=== PATIENT | female | born 1980 | race Caucasian/White ===

== ENCOUNTER → 2018-12-04 | Outpatient (CLI) | payer BC, SELFPAY | PROVIDERS: PCP Internal Medicine Rheumatology; Visit Provider Obstetrics & Gynecology | DX: D64.9 Anemia, unspecified (principal) | CPT/HCPCS: 36415; 83540; 83550; 84466; 85025 ==

== ENCOUNTER 2020-06-25 10:04 | Inpatient (IN) | payer BC, SELFPAY ==
--- NOTE | ~2020-06-25 | CT_ITS ---
EXAMINATION: CT abdomen pelvis wo con DATE: 06/25/2020 13:18 INDICATION: Pancreatitis TECHNIQUE: Computed tomography (CT) of the abdomen and pelvis was performed without intravenous contr ast. Automated exposure control and iterative reconstruction technique were employed. The dose-length product was 233.14 mGy-cm. COMPARISON: None FINDINGS: Lung bases are clear. Heart size is normal. No pericardial or pleural effusion. Liver, gallbladder, s pleen, bilateral adrenal glands and kidneys are normal. There is diffuse peripancreatic inflammatory stranding along with a small nonloculated peripancreatic fluid collection tracking along the anterior left pararenal space. Additional small amount of fluid tracking caudally along the along within the greater omentum. Small amount of ascites in the cul-de-sac. No bowel obstruction. Normal appendix. Bl adder is normal. Tampon within the vaginal vault. Anteverted uterus and bilateral adnexa are unremark able. No pathologically enlarged abdominal or pelvic lymphadenopathy. Bones are unremarkable. IMPRESSION: 1. Peripancreatic inflammatory stranding consistent with acute interstitial pancreatitis with small a cute peripancreatic fluid collections extending to the left anterior pararenal space and tracking naa ng or within the greater omentum. Reviewed, dictated and finalized at location A. IMPRESSION: 1. Peripancreatic inflammatory stranding consistent with acute interstitial whitaker creatitis with small acute peripancreatic fluid collections extending to the le ft anterior pararenal space and tracking along or within the greater omentum.
--- NOTE | ~2020-06-25 | US_ITS ---
EXAMINATION: US right upper quadrant DATE: 06/25/2020 12:44 INDICATION: Right upper quadrant abdominal pain. Pancreatitis. TECHNIQUE: Multiple grayscale and Doppler ultrasound images of the abdomen were obtained. COMPARISON: None FINDINGS: The visualized portions of the head, body, and tail of the pancreas are normal. The liver i s normal without focal lesion. No liver surface nodularity. There is normal flow in main portal vein. The gallbladder is normal in size. No gallstones or gallbladder wall thickening. There was no sonogr aphic Ceron sign. The common duct is normal and measures 5 mm. IMPRESSION: 1. Normal right upper quadrant ultrasound. Reviewed, dictated and finalized at location B.
--- NOTE | 2020-06-25 10:06 | ECG_ITS ---
Measurements Intervals [place] Rate: 94 P: 76 NE: 140 QRS: 66 QRSD: 93 T: 29 QT: 345 QTc: 433 Interpretive Statements SINUS RHYTHM INCOMPLETE RIGHT BUNDLE BRANCH BLOCK NONSPECIFIC T-WAVE ABNORMALITY- ANT/INF LEADS BORDERLINE ECG Electronically Signed On 06-25-2020 10:30:34 CDT by Brett Dozier D.O.
[2020-06-25 10:07] VITALS: BP 110/68; PULSE 101; RESP 20; TEMP 36.4; O2SAT 100
[2020-06-25 10:30] LABS: Basophils Absolute Auto 0.1 K/mm3 (0.0-0.1); Basophils Percent Auto 0.2 % (0.2-1.2); Hematocrit 39.2 % (37.0-47.0); Hemoglobin 12.5 g/dL (12.0-15.0); Immature Granulocyte Absolute 0.14 K/mm3 (0.00-0.031); Immature Granulocyte Percent A 0.7 % (0-0.5); Lymphocytes Absolute Auto 1.22 K/mm3 (0.9-3.2); Lymphocytes Percent Auto 6.1 % (18.3-44.2); Mean Corpuscular HGB Conc 31.9 g/dl (32-36); Mean Corpuscular Hemoglobin 30.3 pg (26-34); Mean Corpuscular Volume 94.9 fl (80-100); Mean Platelet Volume 9.7 fl (7.4-10.4); Monocytes Absolute Auto 0.8 K/mm3 (0.1-0.6); Monocytes Percent Auto 3.9 % (2.6-8.5); Neutrophils Absolute Auto 17.9 K/mm3 (1.3-6.7); Neutrophils Percent Auto 89.1 % (45.5-73.1); Platelet Count Result 446 k/mm3 (150-375); Red Blood Count 4.13 M/mm3 (4.2-5.4); White Blood Count 20.1 K/mm3 (4.5-10.0)
[2020-06-25 10:41] LABS: Alanine Aminotransferase 9 U/L (4-35); Albumin Level 4.2 g/dL (3.5-5.1); Alkaline Phosphatase 65 U/L (38-126); Anion Gap 12 mmol/L (8-16); Aspartate Amino Transferase 20 U/L (14-36); Bilirubin,Total 0.4 mg/dL (0.2-1.3); Blood Urea Nitrogen 9 mg/dL (7-17); Calcium 9.7 mg/dL (8.4-10.2); Carbon Dioxide 23 mmol/L (22-30); Chloride 105 mmol/L (98-107); Estimated CRCL calculation 78 ml/min; Estimated Glomerular Filt Rate > 60; Glucose 119 mg/dL (65-105); Potassium 3.5 mmol/L (3.4-5.0); Sodium 140 mmol/L (137-145)
[2020-06-25 11:13] LABS: Lipase 8986 U/L (23-300)
[2020-06-25 11:33] LABS: Add Urine Microscopic? YES; Appearance Urine Clear (Clear); Bacteria Urine Trace /hpf; Bilirubin Urine Negative (Negative); Blood Urine 2+ (Negative); Color Urine Yellow (Yellow); Glucose Urine UA Negative (Negative); Ketones Urine 2+ mg/dL (Negative); Leukocyte Esterase Ur Negative LEU/UL (Negative); Mucus Urine Rare /lpf; Nitrate Urine Negative (Negative); Protein Urine 1+ mg/dL (Negative); RBC Urine 0-2 /hpf (0-2); Specific Grav Ur 1.014 (1.001-1.035); Squamous Epithelial Cell Urine Rare /hpf (Few); Urobilinogen Urine Negative mg/dL (<2.0); WBC Urine 0-3 /hpf
[2020-06-25] MEDS: ONDANSETRON INJ 4 MG/2 ML VIAL IV PUSH ×3 (12:24→23:59)
[2020-06-25] MEDS: MORPHINE SULFATE (*CRX) 4 MG/ML INJ IV PUSH (12:24)
[2020-06-25] MEDS: SODIUM CHLORIDE 0.9% IV 1,000 ML 999 ML IV CONT (13:10)
[2020-06-25] MEDS: HYDROmorphone HCL INJ (*CRX) 1 MG/ML SYR IV PUSH ×5 (13:10→23:51)
--- NOTE | 2020-06-25 13:29 | ED.ABDPAIN ---
HPI - Abdominal Pain General Chief Complaint: Abdominal Pain Stated Complaint: epigastric and back pain Time Seen by Provider: 06/25/20 12:00 History of Present Illness HPI narrative: Patient is a 39-year-old female who presents ER with sharp epigastric pain. Began this morning. Worse with eating. Pain radiates into her back. Pain causes nausea and vomiting. Has not had similar symptoms before. No history of gallstones or pancreatitis. No alcohol ingestion. No new home medications. No alleviating factors. Related Data Home Medications Medication Instructions Recorded Confirmed alprazolam 2 mg PO Q4H 06/25/20 06/25/20 hydrocodone-acetaminophen [[place]] 1 tablet PO QID PRN 06/25/20 06/25/20 norgestimate-ethinyl estradiol 1 tablet PO DAILY 06/25/20 06/25/20 [Estarylla] Allergies Allergy/AdvReac Type Severity Reaction Status Date / Time Iodinated Contrast Media Allergy Severe Swelling Verified 06/26/20 18:04 of Lip/Tongue/Throat, DYSPNEA levofloxacin Allergy Severe Anaphylactic Verified 06/25/20 15:29 Shock mirtazapine Allergy Severe Unknown Verified 06/25/20 15:29 paroxetine Allergy Severe Unknown Verified 06/25/20 15:29 Sulfa (Sulfonamide Allergy Severe Unknown Verified 06/25/20 15:29 Antibiotics) sulfamethoxazole Allergy Severe Anaphylactic Verified 06/25/20 15:29 Shock trimethoprim Allergy Severe Anaphylactic Verified 06/25/20 15:29 Shock acetaminophen Allergy Intermediate Fainting Verified 06/25/20 15:29 [From Tylenol-Codeine #3] codeine Allergy Intermediate Fainting Verified 06/25/20 15:29 [From Tylenol-Codeine #3] Penicillins Allergy Mild Unknown Verified 06/25/20 15:29 Contrast Media Allergy Severe THROAT Uncoded 06/25/20 10:15 SWELLING, DYSPNEA Review of Systems Review of Systems: All systems reviewed & are unremarkable except as noted in HPI and below Constitutional: Constitutional: Denies chills, Denies fever(s) and Denies weakness ENT: Denies nasal congestion and Denies sore throat Gastrointestinal: Gastrointestinal: Reports abdominal pain, Denies constipation, Denies diarrhea, Reports nausea and Reports vomiting Genitourinary: Genitourinary: Denies nocturia and Denies dysuria [facility] Past Medical History Medical History Fibroids PTSD (post-traumatic stress disorder) Surgical History Surgical History H/O laparoscopy Family History Family History Sibling Renal failure COVID-19 Social History Social History Social History: The patient is and has a master's degree. 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 The patient is lifelong nonsmoker. She denies any alcohol use marijuana use or illicit drugs. Smoking status: Never smoker Second hand tobacco smoke exposure: No Alcohol intake: never Substance use: never Gender identity (if verbalized by the patient): Female Spiritual care concerns: No Exam Narrative: Exam Narrative: GENERAL: Uncomfortable-appearing, well-nourished, and in no acute distress. HEAD: Normocephalic, atraumatic. ENT: Mucous membranes moist. CHEST: Clear to auscultation. No respiratory distress. HEART: Tachycardic and regular. Normal peripheral pulses. ABDOMEN: Soft, epigastric tenderness with guarding, nondistended, normal active bowel sounds. EXTREMITIES: Normal range of motion. No edema. SKIN: Warm, dry, no rash. NEURO: Alert and oriented x3. PSYCH: Normal mood and affect. Course Course Emergency Course: Admit to hospitalist service for pancreatitis and pain control. General surgery consulted. General Vit
[2020-06-25 14:38] VITALS: BP 111/59; PULSE 98; RESP 16; O2SAT 100
--- NOTE | 2020-06-25 14:52 | PM.CNGS ---
Assessment and Plan Assessment and plan (1) Acute pancreatitis: Qualifiers: Acute pancreatitis complication: no infection or necrosis Pancreatitis type: idiopathic Qualified Code(s): K85.00 - Idiopathic acute pancreatitis without necrosis or infection Code(s): K85.90 - Acute pancreatitis without necrosis or infection, unspecified Status: Acute Assessment and Plan: I have reviewed the CT and discussed the findings with the patient. She has evidence of acute pancreatitis but there is no clear identifiable cause. She has never had anything like this before. Since there are no gallstones identified, I do not have any surgical recommendations at this time. Continue supportive care per hospitalist. Will continue to follow for any changes in her condition or abnormal findings on imaging. History of Present Illness Consult details Consult date: 06/26/20 Reason for consult: abdominal pain Requesting physician: Lionel Oro MD Narrative: This is a 39-year-old woman who I am asked to see for pancreatitis. She presented to the emergency department this morning with epigastric abdominal pain that woke her from sleep around 4:30 in the morning. She had eaten pizza for dinner last night, but went to bed feeling otherwise normal. She has never experienced symptoms like this in the past and she is otherwise healthy. She denies any heavy alcohol use. In the emergency department a CT of her abdomen and pelvis was performed which showed evidence of acute interstitial pancreatitis. She also had an abdominal ultrasound which was unremarkable. There were no signs of cholelithiasis or cholecystitis. Review of Systems Review of Systems: All systems reviewed & are unremarkable except as noted in HPI and below Eyes: Eyes: Denies change in vision ENT: Denies hearing loss, Denies neck pain and Denies sore throat Cardiovascular: Cardiovascular: Denies chest pain and Denies dyspnea Respiratory: Respiratory: Denies cough, Denies dyspnea and Denies wheezing Gastrointestinal: Gastrointestinal: Reports as per HPI Genitourinary: Genitourinary: Denies hematuria and Denies dysuria Musculoskeletal: Musculoskeletal: Denies arthralgias, Denies joint swelling and Denies neck pain Allergic/Immunologic: Allergic/Immunologic: Denies wheezing PMFSH Past Medical History Medical History Fibroids PTSD (post-traumatic stress disorder) Surgical History Surgical History H/O laparoscopy Family History Family History Sibling Renal failure COVID-19 Social History Social History Social History: The patient is and has a master's degree. 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 The patient is lifelong nonsmoker. She denies any alcohol use marijuana use or illicit drugs. Smoking status: Never smoker Second hand tobacco smoke exposure: No Alcohol intake: never Substance use: never Gender identity (if verbalized by the patient): Female Spiritual care concerns: No Meds Home Medications and Allergies Home Medications Medication Instructions Recorded Confirmed Type alprazolam 2 mg PO Q4H 06/25/20 06/25/20 History hydrocodone-acetaminophen [[place]] 1 tablet PO QID PRN 06/25/20 06/25/20 History norgestimate-ethinyl estradiol 1 tablet PO DAILY 06/25/20 06/25/20 History [Estarylla] Allergies Allergy/AdvReac Type Severity Reaction Status Date / Time levofloxacin Allergy Severe Anaphylactic Verified 06/25/20 15:29 Shock mirtazapine Allergy Severe Unknown Verified 06/25/20 15:29 paroxetine Allergy Severe Unknown V
[2020-06-25 14:55] VITALS: BP 116/70; PULSE 95; RESP 18; TEMP 36.8; O2SAT 100; BMI 20.7
--- NOTE | 2020-06-25 14:55 | ADMGEN ---
This patient, Eve Chance, was admitted to 2 Medical Room 250-. Patient/family oriented to hospital policies and general routines including ID bracelet, bed and alarms, visiting hours, pain management, procedures, bathroom and other care routines, personal items, smoking policy, room service/diet, and visiting hours. Information on how to activate the Rapid Response Team has been discussed. Patient/Family are encouraged to report perceived risks to care and to ask questions if they do not understand what they are told or what they should do.
[2020-06-25] MEDS: SODIUM CHLORIDE 0.9% IV 1,000 ML 225 ML IV CONT ×2 (15:04→19:45)
[2020-06-25] MEDS: KETOROLAC 15 MG/ML VIAL (*BKC) IV PUSH (18:13)
[2020-06-25] MEDS: LORazepam INJ (*CRX) 2 MG/ML VIAL 1 MG IV PUSH (20:30)
[2020-06-25 20:40] VITALS: BP 130/63; PULSE 108; RESP 18; TEMP 37.1; O2SAT 100
--- NOTE | 2020-06-25 21:10 | PM.IMHP ---
H&P: HPI History of Present Illness Date/Time: 06/25/20 21:10 this is a 39-year-old female patient who just has a history of PTSD and uterine tumors. The patient woke up during the night had sharp epigastric pain. It was worse with eating. She felt a knot in her epigastric area as well. It radiated to her back. She felt nauseated earlier but did vomit. She has not had any similar symptoms in the past and no history of pancreatitis or gallstones. The patient states that she does not drink alcohol. No new medications. Morphine in the emergency room as well as Zofran and IV fluids. Her white count was noted to be 20.1. CT of the pelvis and abdomen was read as peripancreatic inflammatory stranding consistent with acute interstitial pancreatitis with small acute peripancreatic fluid collections extending to the left anterior pararenal space and tracking along or within the great omentum. Surgery had been consulted because there was some concern about the collections. Lipase 8986. However surgery has already seen the patient and noted that there was no surgical intervention required. Date of service of 06/25/2020. Chief Complaint: Abdominal pain Review of Systems Review of Systems: All systems reviewed & are unremarkable except as noted in HPI and below Constitutional: Constitutional: Reports as per HPI and Reports no additional constitutional complaints Eyes: Eyes: Reports as per HPI and Reports no additional eye complaints ENT: Reports system reviewed and no additional complaints, except as documented and Reports Normal hearing present Cardiovascular: Cardiovascular: Reports no additional cardiovascular complaints Respiratory: Respiratory: Reports no additional respiratory complaints and Reports no additional respiratory complaints Gastrointestinal: Gastrointestinal: Reports as per HPI and Reports no additional gastrointestinal complaints Musculoskeletal: Musculoskeletal: Reports no additional musculoskeletal complaints Integumentary/Breasts: Skin/Breast: Reports system reviewed and no additional complaints, except as docu and Reports as per HPI Neurologic: Reports system reviewed and no additional complaints, except as documented, Reports as per HPI and Reports Normal hearing present Psychiatric: Psychiatric: Reports no additional psychiatric complaints and Reports as per HPI Endocrine: Endocrine: Reports no additional endocrine complaints Hematologic/Lymphatic: Hematologic/Lymphatic: Reports no additional hematologic/lymphatic complaints Allergic/Immunologic: Allergic/Immunologic: Reports no additional allergic/immunologic complaints [facility] Past Medical History Medical History (Updated 06/25/20 @ 21:15 by Madhavi Yusuf NP) Fibroids PTSD (post-traumatic stress disorder) Surgical History Surgical History H/O laparoscopy Family History Family History (Updated 06/25/20 @ 21:16 by Madhavi Yusuf NP) Sibling Renal failure COVID-19 Social History Social History (Updated 06/25/20 @ 21:17 by Madhavi uYsuf NP) Social History: The patient is and has a master's degree. 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 The patient is lifelong nonsmoker. She denies any alcohol use marijuana use or illicit drugs. Smoking status: Never smoker Second hand tobacco smoke exposure: No Alcohol intake: never Substance use: never Gender identity (if verbalized by the patient): Female Spiritual care concerns: No Meds Home Medications and Allergies Home Medications Medication Instructions Recorded Confirmed Type alprazolam 2 mg PO Q4H 06/25/20 06/25/20 History hydrocodone-acetaminophen [[place]] 1 tablet PO QID PRN 06/25/20 06/25/20 History norgestimate-ethinyl estradiol 1 tablet PO JIMMY
[2020-06-26] MEDS: SODIUM CHLORIDE 0.9% IV 1,000 ML 225 ML IV CONT ×2 (00:16→04:46)
[2020-06-26] MEDS: KETOROLAC 30 MG/ML VIAL (*BKC) IV PUSH ×3 (01:06→23:59)
[2020-06-26] MEDS: HYDROmorphone HCL INJ (*CRX) 1 MG/ML SYR IV PUSH ×3 (03:18→12:14)
[2020-06-26 05:34] VITALS: BP 101/52; PULSE 86; RESP 16; TEMP 36.9; O2SAT 99
[2020-06-26 05:47] LABS: Basophils Percent Auto 0.2 % (0.2-1.2); Eosinophils Percent Auto 0.1 % (0-4.4); Hematocrit 31.1 % (37.0-47.0); Hemoglobin 9.8 g/dL (12.0-15.0); Immature Granulocyte Absolute 0.08 K/mm3 (0.00-0.031); Immature Granulocyte Percent A 0.5 % (0-0.5); Lymphocytes Absolute Auto 1.51 K/mm3 (0.9-3.2); Lymphocytes Percent Auto 9.4 % (18.3-44.2); Mean Corpuscular HGB Conc 31.5 g/dl (32-36); Mean Corpuscular Hemoglobin 30.4 pg (26-34); Mean Corpuscular Volume 96.6 fl (80-100); Monocytes Absolute Auto 1.2 K/mm3 (0.1-0.6); Monocytes Percent Auto 7.5 % (2.6-8.5); Neutrophils Absolute Auto 13.3 K/mm3 (1.3-6.7); Neutrophils Percent Auto 82.3 % (45.5-73.1); Platelet Count Result 348 k/mm3 (150-375); Red Blood Count 3.22 M/mm3 (4.2-5.4); Red Cell Distribution Width 14.4 % (11.5-14.5); White Blood Count 16.1 K/mm3 (4.5-10.0)
[2020-06-26 06:09] LABS: Alanine Aminotransferase 7 U/L (4-35); Albumin Level 2.9 g/dL (3.5-5.1); Alkaline Phosphatase 42 U/L (38-126); Anion Gap 9 mmol/L (8-16); Aspartate Amino Transferase 18 U/L (14-36); Bilirubin,Total 0.2 mg/dL (0.2-1.3); Blood Urea Nitrogen 7 mg/dL (7-17); Carbon Dioxide 16 mmol/L (22-30); Chloride 115 mmol/L (98-107); Estimated CRCL calculation 85 ml/min; Estimated Glomerular Filt Rate > 60; Glucose 82 mg/dL (65-105); Lactate Dehydrogenase 283 U/L (313-618); Magnesium 1.7 mg/dL (1.6-2.3); Potassium 3.3 mmol/L (3.4-5.0); Sodium 140 mmol/L (137-145); Triglycerides 118 mg/dL (<150)
[2020-06-26 06:50] LABS: Thyroid Stimulating Hormone Reflex 0.289 uIU/mL (0.465-4.68)
[2020-06-26 07:06] LABS: Lipase 8067 U/L (23-300)
[2020-06-26 07:28] LABS: Free T4 Free Thyroxine Reflex 0.83 ng/dL (0.78-2.19)
[2020-06-26 08:18] LABS: Total Triiodothyronine (T3) 0.92 NG/ML (0.97-1.69)
[2020-06-26] MEDS: FAMOTIDINE 20 MG/2 ML VIAL IV PUSH ×2 (09:25→20:13)
[2020-06-26 09:45] VITALS: O2SAT 97
--- NOTE | 2020-06-26 10:26 | PM.IMPN ---
Progress Note: A&P Assessment and Plan (1) Acute pancreatitis: Qualifiers: Acute pancreatitis complication: no infection or necrosis Pancreatitis type: idiopathic Qualified Code(s): K85.00 - Idiopathic acute pancreatitis without necrosis or infection Code(s): K85.90 - Acute pancreatitis without necrosis or infection, unspecified Status: Acute Assessment and Plan: Patient woke up with sudden severe pain to epigastric area at 4:30 a.m.. Labs show leukocytosis with elevated neutrophils could be secondary to pain. [place]ase [place] 8986. CT abd/pelvis showed peripancreatic inflammatory stranding consistent with acute interstitial pancreatitis. The patient had an upper quadrant ultrasound which was read as normal, No gallstones or gallbladder wall thickening. The common duct is normal and measures 5 mm. Patient was started on a clear liquid diet and slowly advance diet as tolerated. IV fluid hydration at this time. P.r.n. antiemetics and pain medications Triglycerides normal. Surgery had been consulted due to the stranding and it was thought that there might possibly be an abscess there. However surgery saw the patient and felt that there was no surgical intervention needed. Continue conservative treatment. Continue monitoring. (2) Leukocytosis: Code(s): D72.829 - Elevated white blood cell count, unspecified Status: Acute Assessment and Plan: Patient had leukocytosis at 20,000 with a left shift. CT abdomen pelvis shows no acute infection at this time. She has remained afebrile, non tachycardic, normal blood pressure, normal oxygenation on room air. Urinalysis shows no acute infection. No respiratory symptoms at this time. I believe leukocytosis is all due to pain and vomiting. No acute signs of infection at this time. Recheck in the morning. (3) Anemia: Code(s): D64.9 - Anemia, unspecified Status: Acute Assessment and Plan: Patient H&H dropped overnight. Hemoglobin on arrival was normal at 12.5, this morning was 9.8. The patient was getting 225 cc of fluid per hour since arrival. She is also having vaginal bleeding since she was not taking her controls last few days. Will recheck H&H this afternoon to make sure it is not dropping any more She has been hospitalized before due to severe anemia 2 years ago. Continue monitoring H&H. Restart control. Transfuse if hemoglobin less than 7. (4) Fibroids: Code(s): D21.9 - Benign neoplasm of connective and other soft tissue, unspecified Status: Chronic Assessment and Plan: Patient states she has a history of fibroids. She has abnormal uterine bleeding that she is on control for. She has an appointment with [facility] 08/14/20 and has plans to have a complete hysterectomy. Will have her keep appointment and follow up. (5) PTSD (post-traumatic stress disorder): Code(s): F43.10 - Post-traumatic stress disorder, unspecified Status: Chronic Assessment and Plan: Patient takes Xanax at home. Will continue with IV Ativan. Time Spent With Patient Time with patient: 25 - 35 minutes Subjective Date/time seen: 06/26/20 10:26 Interval history: Date of service 06/26/2020: Patient still reports having some abdominal bloating, intermittent epigastric pain. IV pain medication is helping but states when he begins to wear off her nausea and pain increases. No vomiting this morning. Denies any fevers, chills, chest pain, shortness of breath, cough, diarrhea, constipation, leg swelling, calf pain, lightheadedness, dizziness or any other symptoms at time. Review of Systems Review of Systems: All systems reviewed & are unremarkable except as n
[2020-06-26] MEDS: LORazepam INJ (*CRX) 2 MG/ML VIAL 1 MG IV PUSH (10:35)
[2020-06-26 11:26] VITALS: BMI 20.7
--- NOTE | 2020-06-26 11:37 | PHAR ---
Home med verified: Estarylla 0.25/0.035mg take 1 tablet PO daily
[2020-06-26] MEDS: ONDANSETRON INJ 4 MG/2 ML VIAL IV PUSH ×2 (12:10→23:59)
[2020-06-26] MEDS: LACTATED RINGERS 1,000 ML 100 ML IV CONT ×2 (13:50→23:55)
[2020-06-26 14:00] VITALS: BP 111/53; PULSE 76; RESP 14; TEMP 37.1; O2SAT 98
[2020-06-26 14:01] LABS: Hematocrit 30.3 % (37.0-47.0); Hemoglobin 9.6 g/dL (12.0-15.0)
[2020-06-26 15:28] VITALS: BP 119/62; PULSE 93; RESP 18; TEMP 37.2; O2SAT 100
[2020-06-26 16:09] LABS: Basophils Percent Auto 0.2 % (0.2-1.2); Eosinophils Percent Auto 0.1 % (0-4.4); Hematocrit 31.7 % (37.0-47.0); Hemoglobin 10.1 g/dL (12.0-15.0); Immature Granulocyte Percent A 0.7 % (0-0.5); Lymphocytes Percent Auto 10.5 % (18.3-44.2); Mean Corpuscular HGB Conc 31.9 g/dl (32-36); Mean Corpuscular Hemoglobin 30.4 pg (26-34); Mean Corpuscular Volume 95.5 fl (80-100); Mean Platelet Volume 9.9 fl (7.4-10.4); Monocytes Absolute Auto 0.9 K/mm3 (0.1-0.6); Monocytes Percent Auto 6.6 % (2.6-8.5); Neutrophils Absolute Auto 11.8 K/mm3 (1.3-6.7); Neutrophils Percent Auto 81.9 % (45.5-73.1); Platelet Count Result 347 k/mm3 (150-375); Red Blood Count 3.32 M/mm3 (4.2-5.4); Red Cell Distribution Width 14.8 % (11.5-14.5); White Blood Count 14.3 K/mm3 (4.5-10.0)
[2020-06-26 16:21] LABS: Lactic Acid Reflex 0.9 mmol/L (0.7-2.1)
[2020-06-26 16:30] LABS: Alanine Aminotransferase 9 U/L (4-35); Albumin Level 3.5 g/dL (3.5-5.1); Alkaline Phosphatase 49 U/L (38-126); Anion Gap 9 mmol/L (8-16); Aspartate Amino Transferase 20 U/L (14-36); Bilirubin,Total 0.3 mg/dL (0.2-1.3); Blood Urea Nitrogen 3 mg/dL (7-17); Calcium 8.4 mg/dL (8.4-10.2); Carbon Dioxide 18 mmol/L (22-30); Chloride 110 mmol/L (98-107); Estimated CRCL calculation 98 ml/min; Estimated Glomerular Filt Rate > 60; Glucose 91 mg/dL (65-105); Magnesium 1.8 mg/dL (1.6-2.3); Potassium 3.5 mmol/L (3.4-5.0); Sodium 137 mmol/L (137-145)
[2020-06-26 17:31] LABS: Lipase 7666 U/L (23-300)
[2020-06-26] MEDS: ALPRAZolam (*CRX) 0.5 MG TABLET 2 MG PO (18:26)
[2020-06-26] MEDS: HYDROcodone/acetaminophen (*CRX) 10-325 MG TABLET 1 TAB PO (20:12)
[2020-06-26 22:00] VITALS: BP 126/64; PULSE 85; RESP 16; TEMP 36.9; O2SAT 96
[2020-06-27] MEDS: ALPRAZolam (*CRX) 0.5 MG TABLET 2 MG PO ×3 (00:41→20:56)
[2020-06-27 05:45] LABS: Basophils Percent Auto 0.3 % (0.2-1.2); Eosinophils Absolute Auto 0.1 K/mm3 (0-0.3); Eosinophils Percent Auto 0.4 % (0-4.4); Hematocrit 27.5 % (37.0-47.0); Hemoglobin 8.9 g/dL (12.0-15.0); Immature Granulocyte Absolute 0.08 K/mm3 (0.00-0.031); Immature Granulocyte Percent A 0.6 % (0-0.5); Lymphocytes Absolute Auto 1.92 K/mm3 (0.9-3.2); Lymphocytes Percent Auto 14.3 % (18.3-44.2); Mean Corpuscular HGB Conc 32.4 g/dl (32-36); Mean Corpuscular Hemoglobin 29.9 pg (26-34); Mean Corpuscular Volume 92.3 fl (80-100); Mean Platelet Volume 10.1 fl (7.4-10.4); Monocytes Percent Auto 7.1 % (2.6-8.5); Neutrophils Absolute Auto 10.4 K/mm3 (1.3-6.7); Neutrophils Percent Auto 77.3 % (45.5-73.1); Platelet Count Result 333 k/mm3 (150-375); Red Blood Count 2.98 M/mm3 (4.2-5.4); Red Cell Distribution Width 14.5 % (11.5-14.5); White Blood Count 13.4 K/mm3 (4.5-10.0)
[2020-06-27 06:00] VITALS: BP 109/59; PULSE 67; RESP 16; TEMP 36.3; O2SAT 100
[2020-06-27 06:03] LABS: Anion Gap 7 mmol/L (8-16); Blood Urea Nitrogen 5 mg/dL (7-17); Calcium 8.5 mg/dL (8.4-10.2); Carbon Dioxide 21 mmol/L (22-30); Chloride 109 mmol/L (98-107); Estimated CRCL calculation 98 ml/min; Estimated Glomerular Filt Rate > 60; Glucose 91 mg/dL (65-105); Magnesium 1.8 mg/dL (1.6-2.3); Potassium 3.6 mmol/L (3.4-5.0); Sodium 137 mmol/L (137-145)
[2020-06-27 07:10] LABS: Lipase 5185 U/L (23-300)
[2020-06-27] MEDS: FAMOTIDINE 20 MG/2 ML VIAL IV PUSH ×2 (09:23→20:41)
[2020-06-27] MEDS: HYDROcodone/acetaminophen (*CRX) 10-325 MG TABLET 1 TAB PO ×3 (10:33→20:55)
[2020-06-27 11:23] VITALS: O2SAT 98
[2020-06-27] MEDS: KETOROLAC 30 MG/ML VIAL (*BKC) IV PUSH (12:39)
[2020-06-27 14:00] VITALS: BP 116/60; PULSE 70; RESP 18; TEMP 36.8; O2SAT 99
--- NOTE | 2020-06-27 15:53 | PM.IMPN ---
Progress Note: A&P Assessment and Plan (1) Acute pancreatitis: Code(s): K85.90 - Acute pancreatitis without necrosis or infection, unspecified Status: Acute Assessment and Plan: Patient woke up with sudden severe pain to epigastric area at 4:30 a.m.. Labs show leukocytosis with elevated neutrophils could be secondary to pain. [place]ase elevated [place] [address]86. CT abd/pelvis showed peripancreatic inflammatory stranding consistent with acute interstitial pancreatitis. The patient had an upper quadrant ultrasound which was read as normal, No gallstones or gallbladder wall thickening. The common duct is normal and measures 5 mm. Patient was advanced to Full liquid diet and will continue to slowly advance diet as tolerated. D/c IV fluids. P.r.n. antiemetics and pain medications Triglycerides normal. Surgery states that there is no concern at this time with her pancreatitis, with normal gallbladder imaging. No concerns for infection or abscess. No need for surgical intervention. Continue conservative treatment. Continue monitoring. (2) Leukocytosis: Code(s): D72.829 - Elevated white blood cell count, unspecified Status: Acute Assessment and Plan: Patient had leukocytosis at 20,000 with a left shift. CT abdomen pelvis shows no acute infection at this time. She has remained afebrile, non tachycardic, normal blood pressure, normal oxygenation on room air. Urinalysis shows no acute infection. No respiratory symptoms at this time. I believe leukocytosis is all due to pain and vomiting. Leukocytosis is improving slowly. Continue monitoring. No acute signs of infection at this time. Recheck in the morning. (3) Anemia: Code(s): D64.9 - Anemia, unspecified Status: Acute Assessment and Plan: Patient H&H dropped overnight. Hemoglobin on arrival was normal at 12.5, this morning was 9.6. The patient was getting 225 cc of fluid per hour since arrival. She is also having vaginal bleeding since she was not taking her controls last few days. Rechecked H&H this morning and stable 8.9. D/C IV fluids and only light menstrual cycle at this time. She has been hospitalized before due to severe anemia 2 years ago. Continue monitoring H&H. Restart control. Transfuse if hemoglobin less than 7. (4) Fibroids: Code(s): D21.9 - Benign neoplasm of connective and other soft tissue, unspecified Status: Chronic Assessment and Plan: Patient states she has a history of fibroids. She has abnormal uterine bleeding that she is on control for. She has an appointment with [facility]Note 3[facility] 08/14/20 and has plans to have a complete hysterectomy. She asked about having Dr. Hyman see her because she he is the 1 who diagnosed her uterine masses in 2018. She has not seen him in about 1 year but asked about him coming in. I told her since her H&H is stable, only slight uterine bleeding, there is no need to have him, evaluate. Will have her follow-up with him as an outpatient. I called Dr. Hyman who would be happy to see her in follow-up after she is discharged for further evaluation. He would also see her in consult to the hospital if she has any other concerns or issues. Appreciate his recommendations. Will have her keep appointment and follow up. (5) PTSD (post-traumatic stress disorder): Code(s): F43.10 - Post-traumatic stress disorder, unspecified Status: Chronic Assessment and Plan: Patient takes Xanax at home, will continue home dose. Time Spent With Patient Time with patient: 25 - 35 minutes Subjective Date/time seen: 06/27/20 15:53 Interval history: Date of service 06/27/2020: Patient feels much better today. She is less confu
[2020-06-27 21:00] VITALS: BP 104/55; PULSE 69; RESP 18; TEMP 36.4; O2SAT 99
[2020-06-28] MEDS: HYDROcodone/acetaminophen (*CRX) 10-325 MG TABLET 1 TAB PO ×3 (03:43→14:55)
[2020-06-28] MEDS: ALPRAZolam (*CRX) 0.5 MG TABLET 2 MG PO ×3 (03:43→21:08)
[2020-06-28 05:38] LABS: Basophils Absolute Auto 0.1 K/mm3 (0.0-0.1); Basophils Percent Auto 0.6 % (0.2-1.2); Eosinophils Absolute Auto 0.2 K/mm3 (0-0.3); Eosinophils Percent Auto 1.6 % (0-4.4); Hematocrit 26.9 % (37.0-47.0); Hemoglobin 9.1 g/dL (12.0-15.0); Immature Granulocyte Absolute 0.05 K/mm3 (0.00-0.031); Immature Granulocyte Percent A 0.5 % (0-0.5); Lymphocytes Absolute Auto 1.47 K/mm3 (0.9-3.2); Lymphocytes Percent Auto 13.6 % (18.3-44.2); Mean Corpuscular HGB Conc 33.8 g/dl (32-36); Mean Corpuscular Hemoglobin 30.5 pg (26-34); Mean Corpuscular Volume 90.3 fl (80-100); Mean Platelet Volume 10.3 fl (7.4-10.4); Monocytes Absolute Auto 0.9 K/mm3 (0.1-0.6); Neutrophils Absolute Auto 8.2 K/mm3 (1.3-6.7); Neutrophils Percent Auto 75.7 % (45.5-73.1); Platelet Count Result 319 k/mm3 (150-375); Red Blood Count 2.98 M/mm3 (4.2-5.4); Red Cell Distribution Width 14.6 % (11.5-14.5); White Blood Count 10.8 K/mm3 (4.5-10.0)
[2020-06-28 06:00] VITALS: BP 103/59; PULSE 66; RESP 16; TEMP 36; O2SAT 100
[2020-06-28 06:01] LABS: Anion Gap 4 mmol/L (8-16); Blood Urea Nitrogen 5 mg/dL (7-17); Calcium 8.3 mg/dL (8.4-10.2); Carbon Dioxide 27 mmol/L (22-30); Chloride 107 mmol/L (98-107); Estimated CRCL calculation 98 ml/min; Estimated Glomerular Filt Rate > 60; Glucose 100 mg/dL (65-105); Potassium 2.9 mmol/L (3.4-5.0); Sodium 138 mmol/L (137-145)
[2020-06-28 06:31] LABS: Lipase 4444 U/L (23-300)
[2020-06-28 08:31] LABS: Magnesium 1.8 mg/dL (1.6-2.3)
[2020-06-28] MEDS: POTASSIUM CHLORIDE 20 MEQ TABLET 40 MEQ PO (08:40)
[2020-06-28] MEDS: FAMOTIDINE 20 MG/2 ML VIAL IV PUSH ×2 (08:46→20:21)
--- NOTE | 2020-06-28 11:16 | PCNFU ---
Nutrition Follow-Up Complete: Altered Nutrition Related Laboratory Values as related to pancreatitis as evidenced by Lipase 8067. Goal: Meet estimated nutritional needs Progressing towards goal. We will continue current goal. Pt current nutrition is Low fat. Last recorded weight is 56.7 kg no new weight. Bowel Motility: No BM reported. Labs Reviewed:Cr 0.6,K 2.9,BUN 5,Hct 26.9,Hgb 9.1, Lipase 4444 Meds Noted:Xanax, Toradol, Dilaudid, [place],Zofran Additional Notes: Patient seen today for nutrition follow up. Lipase is trending down. Low fat diet has been ordered. Patient just received meal. Diet discussed with patient and . Patient instruction attached. Monitoring: Will monitor every 7 days.
[2020-06-28 13:56] LABS: Potassium 3.5 mmol/L (3.4-5.0)
[2020-06-28 14:00] VITALS: BP 100/54; PULSE 81; RESP 18; TEMP 36.2; O2SAT 100
[2020-06-28 14:23] LABS: Add Urine Microscopic? YES; Appearance Urine Clear (Clear); Bacteria Urine Trace /hpf; Bilirubin Urine Negative (Negative); Blood Urine Negative (Negative); Color Urine Yellow (Yellow); Glucose Urine UA Negative (Negative); Ketones Urine Trace mg/dL (Negative); Leukocyte Esterase Ur Negative LEU/UL (Negative); Mucus Urine Moderate /lpf; Nitrate Urine Negative (Negative); Protein Urine Negative (Negative); RBC Urine 0-2 /hpf (0-2); Specific Grav Ur 1.014 (1.001-1.035); WBC Urine 0-3 /hpf
--- NOTE | 2020-06-28 14:45 | PM.IMPN ---
Progress Note: A&P Assessment and Plan (1) Acute pancreatitis: Code(s): K85.90 - Acute pancreatitis without necrosis or infection, unspecified Status: Acute Assessment and Plan: Patient woke up with sudden severe pain to epigastric area at 4:30 a.m.. Labs show leukocytosis with elevated neutrophils could be secondary to pain. [place]ase [place] 8986. CT abd/pelvis showed peripancreatic inflammatory stranding consistent with acute interstitial pancreatitis. The patient had an upper quadrant ultrasound which was read as normal, No gallstones or gallbladder wall thickening. The common duct is normal and measures 5 mm. Patient is tolerating a low-fat diet at this time Patient reported an abnormal color to her urine which showed she had 4+ Urobilirubin. I discussed these findings with my attending who believes it could be caused by inflammation of the pancreas causing some pressure and obstruction to the gallbladder. Recommend rechecking lipase, LFTs in the morning. If abnormal may consider repeating a CT of her abdomen pelvis for further monitoring of her pancreas to rule out worsening inflammation, fluid collection versus abscess. Lipase still elevated at 4444, but trending down. P.r.n. antiemetics and pain medications Triglycerides normal. Surgery states that there is no concern at this time with her pancreatitis, with normal gallbladder imaging. No concerns for infection or abscess. No need for surgical intervention. Continue conservative treatment. Continue monitoring. (2) Leukocytosis: Code(s): D72.829 - Elevated white blood cell count, unspecified Status: Acute Assessment and Plan: Patient had leukocytosis at 20,000 with a left shift. CT abdomen pelvis shows no acute infection at this time. She has remained afebrile, non tachycardic, normal blood pressure, normal oxygenation on room air. Urinalysis shows no acute infection. No respiratory symptoms at this time. I believe leukocytosis is all due to pain and vomiting. Leukocytosis is improving slowly, 10,800. Normal Vitaol signs Continue monitoring. No acute signs of infection at this time. Recheck in the morning. (3) Anemia: Code(s): D64.9 - Anemia, unspecified Status: Acute Assessment and Plan: Patient H&H dropped overnight. Hemoglobin on arrival was normal at 12.5, this morning was 9.6. The patient was getting 225 cc of fluid per hour since arrival. She is also having vaginal bleeding since she was not taking her controls last few days. Rechecked H&H this morning and stable 9.1 D/C IV fluids and only light menstrual cycle at this time. She has been hospitalized before due to severe anemia 2 years ago. Continue monitoring H&H. Restart control. Transfuse if hemoglobin less than 7. (4) Fibroids: Code(s): D21.9 - Benign neoplasm of connective and other soft tissue, unspecified Status: Chronic Assessment and Plan: Patient states she has a history of fibroids. She has abnormal uterine bleeding that she is on control for. She has an appointment with [facility] 08/14/20 and has plans to have a complete hysterectomy. She asked about having Dr. Hyman see her because she he is the 1 who diagnosed her uterine masses in 2018. She has not seen him in about 1 year but asked about him coming in. I told her since her H&H is stable, only slight uterine bleeding, there is no need to have him, evaluate. Will have her follow-up with him as an outpatient. I called Dr. Hyman who would be happy to see her in follow-up after she is discharged for further evaluation. He would also see her in consult to the hospital if she has any other concerns or issues. Appreciate his recommendations. Will have her keep appointment and follow up.
[2020-06-28 20:00] VITALS: PULSE 77; RESP 16; O2SAT 99
[2020-06-28 21:56] VITALS: BP 108/60; PULSE 77; RESP 16; TEMP 36.3; O2SAT 99
[2020-06-28 22:23] VITALS: O2SAT 99
[2020-06-29] MEDS: HYDROcodone/acetaminophen (*CRX) 10-325 MG TABLET 1 TAB PO ×2 (04:59→10:10)
[2020-06-29 06:00] VITALS: BP 118/64; PULSE 82; RESP 16; TEMP 36.4; O2SAT 99
[2020-06-29 06:14] LABS: Basophils Absolute Auto 0.1 K/mm3 (0.0-0.1); Basophils Percent Auto 0.6 % (0.2-1.2); Eosinophils Absolute Auto 0.2 K/mm3 (0-0.3); Eosinophils Percent Auto 2.7 % (0-4.4); Hematocrit 28.9 % (37.0-47.0); Hemoglobin 9.4 g/dL (12.0-15.0); Immature Granulocyte Absolute 0.06 K/mm3 (0.00-0.031); Immature Granulocyte Percent A 0.7 % (0-0.5); Lymphocytes Absolute Auto 1.55 K/mm3 (0.9-3.2); Lymphocytes Percent Auto 17.3 % (18.3-44.2); Mean Corpuscular HGB Conc 32.5 g/dl (32-36); Mean Corpuscular Hemoglobin 29.8 pg (26-34); Mean Corpuscular Volume 91.7 fl (80-100); Mean Platelet Volume 10.6 fl (7.4-10.4); Monocytes Absolute Auto 0.7 K/mm3 (0.1-0.6); Monocytes Percent Auto 8.2 % (2.6-8.5); Neutrophils Absolute Auto 6.3 K/mm3 (1.3-6.7); Neutrophils Percent Auto 70.5 % (45.5-73.1); Platelet Count Result 371 k/mm3 (150-375); Red Blood Count 3.15 M/mm3 (4.2-5.4); Red Cell Distribution Width 14.6 % (11.5-14.5)
[2020-06-29 06:26] LABS: Alanine Aminotransferase 12 U/L (4-35); Albumin Level 3.3 g/dL (3.5-5.1); Alkaline Phosphatase 55 U/L (38-126); Anion Gap 2 mmol/L (8-16); Aspartate Amino Transferase 22 U/L (14-36); Bilirubin,Total 0.2 mg/dL (0.2-1.3); Blood Urea Nitrogen 4 mg/dL (7-17); Calcium 8.4 mg/dL (8.4-10.2); Carbon Dioxide 32 mmol/L (22-30); Chloride 104 mmol/L (98-107); Estimated CRCL calculation 98 ml/min; Estimated Glomerular Filt Rate > 60; Glucose 100 mg/dL (65-105); Potassium 3.2 mmol/L (3.4-5.0); Sodium 138 mmol/L (137-145)
[2020-06-29 06:54] LABS: Lipase 3227 U/L (23-300)
--- NOTE | 2020-06-29 09:30 | PC.NURSE ---
Discussed anxiety medication with patient. Patient had previously expressed concern that she continue to receive her Xanax every 4 hours while in the hospital. Patient has not received any since last evening. Offered medication to patient and she states I don't need it right now. Will follow up later.
[2020-06-29] MEDS: FAMOTIDINE 20 MG/2 ML VIAL IV PUSH (09:52)
[2020-06-29] MEDS: POTASSIUM CHLORIDE 20 MEQ TABLET 40 MEQ PO (09:52)
--- NOTE | 2020-06-29 12:20 | PC.NURSE ---
Asked patient if she would like her anxiety medication and she states yes, that's probably why I'm feeling funny - because I didn't get it this morning. Reminded patient that we had discussed it earlier and she hadn't wanted it at that time. Patient agrees to take the medication now.
[2020-06-29] MEDS: ALPRAZolam (*CRX) 0.5 MG TABLET 2 MG PO (12:25)
--- NOTE | 2020-06-29 13:12 | PM.DS ---
DS: Admitting Diagnosis Admitting Diagnosis Admitting Diagnosis: Abd pain DS: Discharge Diagnosis Discharge Diagnosis (1) Acute pancreatitis: Code(s): K85.90 - Acute pancreatitis without necrosis or infection, unspecified Status: Acute Assessment and Plan: (2) Leukocytosis: Code(s): D72.829 - Elevated white blood cell count, unspecified Status: Acute Assessment and Plan: (3) Anemia: Code(s): D64.9 - Anemia, unspecified Status: Acute Assessment and Plan: (4) Fibroids: Code(s): D21.9 - Benign neoplasm of connective and other soft tissue, unspecified Status: Chronic Assessment and Plan: Patient states she has a history of fibroids. She has abnormal uterine bleeding that she is on control for. She has an appointment with [facility] 08/14/20 and has plans to have a complete hysterectomy. She asked about having Dr. Hyman see her because she he is the 1 who diagnosed her uterine masses in 2018. She has not seen him in about 1 year but asked about him coming in. I told her since her H&H is stable, only slight uterine bleeding, there is no need to have him, evaluate. Will have her follow-up with him as an outpatient. I called Dr. Hyman who would be happy to see her in follow-up after she is discharged for further evaluation. Follow up in 1 week. (5) PTSD (post-traumatic stress disorder): Code(s): F43.10 - Post-traumatic stress disorder, unspecified Status: Chronic Assessment and Plan: DS: Summary Hospital Course Reason for hospitalization: Patient is a 39 year old woman with history of anxiety and PTSD, who woke up with sudden severe pain to epigastric area at 4:30 a.m.. [place]ase [place] [address]86. [address] abd/pelvis showed peripancreatic inflammatory stranding consistent with acute interstitial pancreatitis. Triglycerides normal. The patient had an upper quadrant ultrasound which was read as normal, No gallstones or gallbladder wall thickening. The common duct is normal and measures 5 mm. She was treated conservatively during her hospitalization, slowly advancing diet as tolerated. Her lipase continue to trend down, normal LFTs. Patient is tolerating a low-fat diet without any issues. Patient reported an abnormal color to her urine which showed she had 4+ Urobilirubin. LFTs are normal. Not having any pain. Recommended follow up with GI and repeat imaging in 6-8 weeks to ensure she does not have a pseudocyst from the peripancreatic fluid. Patient had leukocytosis at 20,000 with a left shift. CT abdomen pelvis shows no acute infection at this time. She has remained afebrile, non tachycardic, normal blood pressure, normal oxygenation on room air. Urinalysis shows no acute infection. No respiratory symptoms at this time. I believe leukocytosis is all due to pain and vomiting. Leukocytosis normalized. Normal UA, no infection. Patient H&H dropped overnight. Hemoglobin on arrival was normal at 12.5, this morning was 9.6. The patient was getting 225 cc of fluid per hour for almost 24 hours and was also having vaginal bleeding since she was not taking her controls last few days. H&H remained stable at 9/28.9%. Follow up with [facility] for abnormal bleeding. Hospital Course: See above Status at Discharge Cognitive/behavioral status at discharge: Stable, improved. Time Spent with Patient Time attestation: Total time spent providing and/or coordinating discharge services: 42 Time spent: Greater than 30 minutes Exam Narrative: Exam Narrative: General: 39-year-old woman sitting up in bed watching TV and on her phone. Appears comfortable. In no acute dis
--- NOTE | 2020-08-21 07:45 | PC.NURSE ---
Outpatient referral started for initial MNT for pancreatitis. [facility].
== END 2020-06-29 14:15 | disposition home or self-care (01) | DRG 282 ==
LOC: ANHED 12:22 → ANH2MED 15:10
PROVIDERS: Nurse Practitioner; Admitting Provider Hospitalist; Emergency Provider Emergency Medicine; Visit Provider Physician Assistant
DX: K85.00 Idiopathic acute pancreatitis without necrosis or infection (principal); D21.9 Benign neoplasm of connective and other soft tissue, unspecified; F43.10 Post-traumatic stress disorder, unspecified; D72.829 Elevated white blood cell count, unspecified; D64.9 Anemia, unspecified; Z79.899 Other long term (current) drug therapy
CPT/HCPCS: 36415; 74176; 76705; 80048; 80053; 81001; 81025; 83605; 83615; 83690; 83735; 84132; 84439; 84443; 84478; 84480; 85014; 85018; 85025; 93005; 96361; 96374; 96375; 96376; 99285; A9270; G0379; J1170; J1885; J2060; J2270; J2405; J3480; J7030; J7120

== ENCOUNTER 2020-07-06 15:29 | Emergency (ER) | payer BC, SELFPAY ==
--- NOTE | 2020-07-06 15:33 | ED.DENTAL ---
HPI - Dental/Oral General Chief complaint: Dental/Oral Stated complaint: tooth absess Time Seen by Provider: 07/06/20 15:39 Source: patient and RN notes reviewed Mode of arrival: ambulatory Limitations: no limitations History of Present Illness HPI Narrative: 39-year-old female presents with concern for left upper dental pain she reports tenderness to the left sinus area, bilateral ear pain. Reports she had a filling that fell out in March, pain in that tooth has began several days ago. She reports she was recently hospitalized for pancreatitis and was sitting upright bent over for much of the time due to pain. She reports right mid back pain. She denies cough, shortness of breath, fever, rhinorrhea, nasal congestion. She denies any intervention for her tooth pain, back pain, ear pain. MD Complaint: tooth pain Location: Tooth # (12) Related Data Home Medications Medication Instructions Recorded Confirmed alprazolam 2 mg PO Q4H 06/25/20 07/06/20 hydrocodone-acetaminophen 1 tablet PO QID PRN 06/25/20 07/06/20 norgestimate-ethinyl estradiol 1 tablet PO DAILY 06/25/20 07/06/20 [Estarylla] Allergies Allergy/AdvReac Type Severity Reaction Status Date / Time Iodinated Contrast Media Allergy Severe Swelling Verified 07/06/20 15:42 of Lip/Tongue/Throat, DYSPNEA levofloxacin Allergy Severe Anaphylactic Verified 07/06/20 15:42 Shock mirtazapine Allergy Severe Unknown Verified 07/06/20 15:42 paroxetine Allergy Severe Unknown Verified 07/06/20 15:42 Sulfa (Sulfonamide Allergy Severe Unknown Verified 07/06/20 15:42 Antibiotics) sulfamethoxazole Allergy Severe Anaphylactic Verified 07/06/20 15:42 Shock trimethoprim Allergy Severe Anaphylactic Verified 07/06/20 15:42 Shock acetaminophen Allergy Intermediate Fainting Verified 07/06/20 15:42 [From Tylenol-Codeine #3] codeine Allergy Intermediate Fainting Verified 07/06/20 15:42 [From Tylenol-Codeine #3] Penicillins Allergy Mild Unknown Verified 07/06/20 15:42 clindamycin Allergy Rash Verified 07/06/20 15:58 Contrast Media Allergy Severe THROAT Uncoded 07/03/20 11:52 SWELLING, DYSPNEA Review of Systems Review of Systems: Narrative: CONSTITUTIONAL: Denies malaise, chills, sweats, or fever. EYES: Denies visual changes ENT: Denies swollen lips, swollen tongue, difficulty swallowing. Reports dental pain and left sinus swelling, bilateral ear pain CARDIOVASCULAR: Denies chest pain, palpitations, or edema. RESPIRATORY: Denies cough or dyspnea. GASTROINTESTINAL: Denies abdominal pain, nausea, vomiting SKIN: Denies rash or itching. MUSCULOSKELETAL: Denies myalgia. Reports right mid back pain NEUROLOGIC: Denies headache. All systems reviewed & are unremarkable except as noted in HPI and below PMFSH Past Medical History Medical History Fibroids PTSD (post-traumatic stress disorder) Surgical History Surgical History H/O laparoscopy Family History Family History Sibling Renal failure COVID-19 Social History Social History (System 07/03/20 @ 11:52 by Jenny Hernandez) Social History: The patient is and has a master's degree. 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 The patient is lifelong nonsmoker. She denies any alcohol use marijuana use or illicit drugs. Smoking status: Never smoker Second hand tobacco smoke exposure: No Alcohol intake: never Substance use: never Gender identity (if verbalized by the patient): Female Spiritual care concerns: No Comments At time of signature, agree with nursing past medical, surgical, social and family history. There is no relevant f
[2020-07-06 15:37] VITALS: BP 125/70; PULSE 119; RESP 12; TEMP 37; O2SAT 99
== END 2020-07-06 15:59 | disposition home or self-care (01) ==
PROVIDERS: Emergency Provider Nurse Practitioner
DX: K04.7 Periapical abscess without sinus (principal)
CPT/HCPCS: 99213; G0463

== ENCOUNTER → 2020-09-25 02:42 | Outpatient (CLI) | payer BC, SELFPAY ==
[2020-09-25 17:39] LABS: SARS-CoV-2 RNA PCR Negative
== END ==
PROVIDERS: PCP Nurse Practitioner Family; Visit Provider Nurse Practitioner Family
DX: R68.89 Other general symptoms and signs (principal); Z20.822 Contact with and (suspected) exposure to COVID-19
CPT/HCPCS: C9803; U0003; U0005

== ENCOUNTER 2020-10-05 11:20 | Outpatient (CLI) | payer BC, SELFPAY ==
[2020-10-05 12:02] LABS: Hematocrit 33.4 % (37.0-47.0); Hemoglobin 10.1 g/dL (12.0-15.0); Mean Corpuscular HGB Conc 30.2 g/dl (32-36); Mean Corpuscular Hemoglobin 26.6 pg (26-34); Mean Corpuscular Volume 88.1 fl (80-100); Mean Platelet Volume 9.6 fl (7.4-10.4); Platelet Count Result 555 k/mm3 (150-375); Red Blood Count 3.79 M/mm3 (4.2-5.4); Red Cell Distribution Width 23.4 % (11.5-14.5); White Blood Count 8.4 K/mm3 (4.5-10.0)
[2020-10-05 12:16] LABS: Iron 14 ug/dL (37-170)
[2020-10-05 12:23] LABS: Alanine Aminotransferase 13 U/L (4-35); Albumin Level 4.2 g/dL (3.5-5.1); Alkaline Phosphatase 66 U/L (38-126); Amylase 58 U/L (30-110); Anion Gap 9 mmol/L (8-16); Aspartate Amino Transferase 26 U/L (14-36); Bilirubin,Total 0.4 mg/dL (0.2-1.3); Blood Urea Nitrogen 8 mg/dL (7-17); CRP < 0.5 mg/dL (<1.0); Carbon Dioxide 24 mmol/L (22-30); Chloride 104 mmol/L (98-107); Estimated Glomerular Filt Rate > 60; Glucose 100 mg/dL (65-110); Lipase 16 U/L (23-300); Potassium 3.5 mmol/L (3.4-5.0); Sodium 137 mmol/L (137-145)
[2020-10-05 12:26] LABS: Percent Iron Saturation 3 % (20-50)
[2020-10-05 12:53] LABS: Ferritin 5.74 ng/mL (6.24-137)
[2020-10-05 13:23] LABS: Folic Acid 7.8 ng/mL (2.76->20)
[2020-10-05 13:36] LABS: Erythrocyte Sedimentation Rate 22 mm/hr (0-20)
[2020-10-07 22:22] LABS: Tissue Transglutaminase IgG Ab 1 U/mL (<6)
[2020-10-11 11:43] LABS: Tissue Transglutaminase IgA Ab 1 U/mL (<4)
== END 2020-10-05 11:21 | disposition home or self-care (01) ==
PROVIDERS: PCP Nurse Practitioner Family; Visit Provider Nurse Practitioner Family
DX: R10.13 Epigastric pain (principal)
CPT/HCPCS: 36415; 80053; 82150; 82607; 82728; 82746; 83516; 83540; 83550; 83690; 85027; 85652; 86140

== ENCOUNTER 2020-10-17 12:39 | Outpatient (CLI) | payer BC, SELFPAY ==
--- NOTE | ~2020-10-17 | MR_ITS ---
EXAMINATION: MR abdomen wo con DATE: 10/17/2020 14:06 INDICATION: Acute pancreatitis without necrosis or infection. TECHNIQUE: Magnetic resonance imaging (MRI) of the abdomen was performed without intravenous contrast . Sequences included coronal T2-weighted FS FSE, coronal and axial FS FIESTA, axial T2-weighted FSE, coronal LAVA-flex, axial STIR FSE, axial DWI, axial dual-echo T1-weighted FSPGR, and axial LAVA. COMPARISON: CT abdomen and pelvis 06/25/2020 FINDINGS: The liver, gallbladder, spleen, pancreas, adrenal glands, and kidneys are normal. The common bile prachi t is normal and measures 4 mm. There are no dilated loops of bowel. There are no pathologically enlar ged lymph nodes. There is no free intraperitoneal fluid. IMPRESSION: 1. Normal abdomen. Reviewed, dictated and finalized at location A. IMPRESSION: 1. Normal abdomen.
== END 2020-10-17 12:40 | disposition home or self-care (01) ==
LOC: ANHIMG 12:41
PROVIDERS: PCP Nurse Practitioner Family; Visit Provider Internal Medicine Gastroenterology
DX: K85.90 Acute pancreatitis without necrosis or infection, unspecified (principal)
CPT/HCPCS: 74181

== ENCOUNTER 2020-11-01 08:13 | Outpatient (CLI) | payer BC, SELFPAY ==
--- NOTE | ~2020-11-01 | US_ITS ---
EXAMINATION: US pelvic complete w TV DATE: 11/01/2020 09:21 INDICATION: Vaginal bleeding with clots Comparison:06/22/2017 TECHNIQUE: Multiple transabdominal and endovaginal sonographic images of the pelvis performed. FINDINGS: The uterus measures 9.3 x 5.8 x 5.3 cm. There are nabothian cysts. The endometrial complex measures 6 mm. The right ovary measures 2 x 1.1 x 1.4 cm and the left ovary measures 1.9 x 2.1 x 2 cm. There are sm all follicles in each ovary. Normal doppler signal in both ovaries. There is no free fluid in the pelvis. There are no abnormal masses seen on either side. IMPRESSION: 1. Unremarkable pelvic ultrasound. Reviewed, dictated and finalized at location A.
== END 2020-11-01 08:14 | disposition home or self-care (01) ==
PROVIDERS: PCP Nurse Practitioner Family; Visit Provider Nurse Practitioner Family
DX: D21.9 Benign neoplasm of connective and other soft tissue, unspecified (principal); K85.90 Acute pancreatitis without necrosis or infection, unspecified; D64.9 Anemia, unspecified
CPT/HCPCS: 76830; 76856

== ENCOUNTER 2021-02-07 08:18 | Outpatient (CLI) | payer BC, SELFPAY ==
--- NOTE | 2021-02-07 08:32 | ECHO_ITS ---
Patient Info Name: Eve Chance Age: 40 years : 1980 Gender: Female Ht: 65 in Wt: 115 lbs BSA: 1.54 m2 HR: 82 bpm BP: 102 / 84 mmHg Heart Rhythm: Sinus Rhythm Exam Date: 02/07/2021 8:59 AM Exam Location: [facility] Patient Status: Outpatient Admit Date: 02/07/2021 Staff Ordering Physician: Julieta Mariscal NP Pharmaceutical Sales Specialist: Johan Ceron RDCS, RT Attending Provider: Julieta Mariscal NP Referring Physician: Davey MELÉNDEZ; Exam Type: CA echo doppler color flow Study Info Indications R60.0 - Localized edema Complete two-dimensional, color flow and Doppler transthoracic echocardiogram is performed. Strain analysis performed. Summary 1. Complete two-dimensional, color flow and Doppler transthoracic echocardiogram is performed. 2. Strain analysis performed. 3. Left ventricular chamber dimension is normal. 4. Left ventricular systolic function is mildly reduced, estimated at 50-55%. 5. There is no increased left ventricular wall thickness. 6. The left ventricular diastolic function is grade I diastolic dysfunction. 7. The basal inferior wall, basal inferoseptal, mid inferoseptal, basal anteroseptal, and mid anteroseptal are hypokinetic. 8. Global longitudinal strain is borderline at -18 %. 9. There is mild mitral valve regurgitation. 10. There is mild tricuspid valve regurgitation. Left Ventricle Global longitudinal strain is borderline at -18 %. Left ventricular chamber dimension is normal. Left ventricular systolic function is mildly reduced, estimated at 50-55%. There is no increased left ventricular wall thickness. The left ventricular diastolic function is grade I diastolic dysfunction. The basal inferior wall, basal inferoseptal, mid inferoseptal, basal anteroseptal, and mid anteroseptal are hypokinetic. All other garcia appear normal. Right Ventricle Right ventricular chamber dimension is normal. Right ventricular systolic function is normal. Left Atria Left atrial chamber dimension is normal. Right Atria Right atrial chamber dimension is normal. Atrial Septum Intact interatrial septum visualized by color flow imaging. Aortic Valve The aortic valve is trileaflet. There is no aortic valve sclerosis. There is no aortic valve stenosis. There is trace aortic valve regurgitation. Pulmonic Valve The pulmonic valve is normal. There is no pulmonic valve stenosis. There is trace pulmonic regurgitation. Mitral Valve The mitral valve has normal leaflets. There is no mitral valve stenosis. There is mild mitral valve regurgitation. Tricuspid Valve No pulmonary hypertension, estimated pulmonary arterial systolic pressure is 23 mmHg. The tricuspid valve leaflets are normal. There is no significant tricuspid valve stenosis. There is mild tricuspid valve regurgitation. Pericardium/Pleural The pericardium appears normal. There is no pericardial effusion. Inferior Vena Cava Normal inferior vena cava with >50% collapse upon inspiration consistent with normal right atrial pressure, 5 mmHg. Aorta The aortic root size at the sinus of Valsalva is normal. The prox ascending aorta size is normal. Left Ventricular Outflow Tract Name Value Normal LVOT 2D LVOT Di
== END 2021-02-07 08:19 | disposition home or self-care (01) ==
LOC: ANHCARD 08:20
PROVIDERS: PCP Nurse Practitioner Family; Visit Provider Nurse Practitioner Family
DX: I34.0 Nonrheumatic mitral (valve) insufficiency (principal); I36.1 Nonrheumatic tricuspid (valve) insufficiency; R60.0 Localized edema
CPT/HCPCS: 93306

== ENCOUNTER 2021-05-23 11:00 | Outpatient (RCR) | payer OTHER, MEDICAID, SELFPAY ==
[2021-04-24 09:42] VITALS: BMI 19.3
[2021-05-23 11:24] VITALS: BMI 19.0
[2021-05-23 11:29] VITALS: BMI 19.0
== END 2021-07-08 09:32 | disposition home or self-care (01) ==
LOC: ANHDMC 11:00
PROVIDERS: PCP Nurse Practitioner Family; Visit Provider Family Medicine
DX: K85.90 Acute pancreatitis without necrosis or infection, unspecified (principal); Z71.3 Dietary counseling and surveillance
CPT/HCPCS: 97802; 97803

== ENCOUNTER 2021-05-24 15:50 | Outpatient (CLI) | payer MEDICAID, SELFPAY ==
[2021-05-24 16:09] LABS: Basophils Percent Auto 0.6 % (0.2-1.2); Eosinophils Absolute Auto 0.1 K/mm3 (0-0.3); Eosinophils Percent Auto 1.1 % (0-4.4); Hematocrit 35.3 % (37.0-47.0); Hemoglobin 11.3 g/dL (12.0-15.0); Immature Granulocyte Absolute 0.01 K/mm3 (0.00-0.031); Immature Granulocyte Percent A 0.2 % (0-0.5); Lymphocytes Absolute Auto 2.71 K/mm3 (0.9-3.2); Lymphocytes Percent Auto 43.1 % (18.3-44.2); Mean Corpuscular Hemoglobin 32.4 pg (26-34); Mean Corpuscular Volume 101.1 fl (80-100); Mean Platelet Volume 9.3 fl (7.4-10.4); Monocytes Absolute Auto 0.4 K/mm3 (0.1-0.6); Monocytes Percent Auto 6.8 % (2.6-8.5); Neutrophils Percent Auto 48.2 % (45.5-73.1); Platelet Count Result 367 k/mm3 (150-375); Red Blood Count 3.49 M/mm3 (4.2-5.4); Red Cell Distribution Width 14.1 % (11.5-14.5); White Blood Count 6.3 K/mm3 (4.5-10.0)
[2021-05-24 16:22] LABS: Alanine Aminotransferase 16 U/L (4-35); Albumin Level 4.1 g/dL (3.5-5.1); Alkaline Phosphatase 89 U/L (38-126); Amylase 85 U/L (30-110); Anion Gap 5 mmol/L (8-16); Aspartate Amino Transferase 28 U/L (14-36); Bilirubin,Total 0.2 mg/dL (0.2-1.3); Blood Urea Nitrogen 9 mg/dL (7-17); CRP < 0.5 mg/dL (<1.0); Calcium 8.7 mg/dL (8.4-10.2); Carbon Dioxide 26 mmol/L (22-30); Chloride 106 mmol/L (98-107); Estimated Glomerular Filt Rate > 60; Glucose 92 mg/dL (65-110); Lipase 22 U/L (23-300); Potassium 3.4 mmol/L (3.4-5.0); Sodium 137 mmol/L (137-145)
== END 2021-05-24 15:51 | disposition home or self-care (01) ==
LOC: ANHLAB 15:53
PROVIDERS: PCP Nurse Practitioner Family; Visit Provider Nurse Practitioner Family
DX: R10.12 Left upper quadrant pain (principal); Z87.19 Personal history of other diseases of the digestive system; R53.83 Other fatigue; D64.9 Anemia, unspecified; R63.4 Abnormal weight loss
CPT/HCPCS: 36415; 80053; 82150; 83690; 84443; 85025; 86038; 86140

== ENCOUNTER 2022-02-21 13:42 | Outpatient (CLI) | payer OTHER, SELFPAY ==
[2022-02-21 14:17] LABS: Basophils Absolute Auto 0.1 K/mm3 (0.0-0.1); Basophils Percent Auto 0.9 % (0.2-1.2); Eosinophils Absolute Auto 0.1 K/mm3 (0-0.3); Eosinophils Percent Auto 1.3 % (0-4.4); Hematocrit 39.5 % (37.0-47.0); Hemoglobin 13.3 g/dL (12.0-15.0); Immature Granulocyte Absolute 0.03 K/mm3 (0.00-0.031); Immature Granulocyte Percent A 0.5 % (0-0.5); Lymphocytes Absolute Auto 2.06 K/mm3 (0.9-3.2); Lymphocytes Percent Auto 37.1 % (18.3-44.2); Mean Corpuscular HGB Conc 33.7 g/dl (32-36); Mean Corpuscular Hemoglobin 32.7 pg (26-34); Mean Corpuscular Volume 97.1 fl (80-100); Mean Platelet Volume 9.4 fl (7.4-10.4); Monocytes Absolute Auto 0.4 K/mm3 (0.1-0.6); Monocytes Percent Auto 7.4 % (2.6-8.5); Neutrophils Absolute Auto 2.9 K/mm3 (1.3-6.7); Neutrophils Percent Auto 52.8 % (45.5-73.1); Platelet Count Result 371 k/mm3 (150-375); Red Blood Count 4.07 M/mm3 (4.2-5.4); Red Cell Distribution Width 12.9 % (11.5-14.5); White Blood Count 5.6 K/mm3 (4.5-10.0)
[2022-02-21 14:28] LABS: Alanine Aminotransferase 27 U/L (6-35); Albumin Level 4.2 g/dL (3.5-5.1); Alkaline Phosphatase 114 U/L (38-126); Anion Gap 6 mmol/L (8-16); Aspartate Amino Transferase 39 U/L (14-36); Bilirubin,Total 0.2 mg/dL (0.2-1.3); Blood Urea Nitrogen 6 mg/dL (7-17); Calcium 8.8 mg/dL (8.4-10.2); Carbon Dioxide 32 mmol/L (22-30); Chloride 101 mmol/L (98-107); Cholesterol 150 mg/dL (0-200); Estimated Glomerular Filt Rate > 60; Glucose 81 mg/dL (65-110); HDL Direct 47 mg/dL; Potassium 3.9 mmol/L (3.4-5.0); Sodium 139 mmol/L (137-145); Triglycerides 87 mg/dL (<150)
[2022-02-21 14:38] LABS: LDL Cholesterol Direct 67 mg/dL
[2022-02-21 15:27] LABS: Iron 55 ug/dL (37-170)
[2022-02-21 15:37] LABS: Percent Iron Saturation 16 % (20-50)
[2022-02-21 16:00] LABS: Thyroid Stimulating Hormone Reflex 0.814 uIU/mL (0.465-4.68)
[2022-02-21 20:41] LABS: Vitamin D 25 Hydroxy < 12.8 ng/mL
== END 2022-02-21 13:43 | disposition home or self-care (01) ==
LOC: ANHLAB 13:45
PROVIDERS: PCP Nurse Practitioner Family; Visit Provider Nurse Practitioner
DX: R53.83 Other fatigue (principal); Z13.220 Encounter for screening for lipoid disorders; Z13.6 Encounter for screening for cardiovascular disorders; E55.9 Vitamin D deficiency, unspecified; D64.9 Anemia, unspecified
CPT/HCPCS: 36415; 80053; 80061; 82306; 82728; 83540; 83550; 84443; 85025

== ENCOUNTER 2022-02-21 20:13 | Outpatient (NON) | payer OTHER, SELFPAY | END 2022-02-21 20:14 | disposition home or self-care (01) | LOC: ANHLAB 20:13 | PROVIDERS: PCP Family Medicine; Visit Provider Nurse Practitioner | DX: R39.9 Unspecified symptoms and signs involving the genitourinary system (principal) | CPT/HCPCS: 87086 ==

== ENCOUNTER 2022-06-05 14:43 | Outpatient (CLI) | payer OTHER, SELFPAY ==
[2022-06-05 15:34] LABS: Alanine Aminotransferase 22 U/L (6-35); Albumin Level 4.2 g/dL (3.5-5.1); Alkaline Phosphatase 98 U/L (38-126); Amylase 56 U/L (30-110); Anion Gap 6 mmol/L (8-16); Aspartate Amino Transferase 29 U/L (14-36); Bilirubin,Total 0.4 mg/dL (0.2-1.3); Blood Urea Nitrogen 8 mg/dL (7-17); Calcium 8.4 mg/dL (8.4-10.2); Carbon Dioxide 33 mmol/L (22-30); Chloride 99 mmol/L (98-107); Estimated Glomerular Filt Rate > 60; Glucose 124 mg/dL (65-110); Lipase 18 U/L (23-300); Potassium 3.3 mmol/L (3.4-5.0); Sodium 138 mmol/L (137-145)
== END 2022-06-05 14:44 | disposition home or self-care (01) ==
PROVIDERS: PCP Family Medicine; Visit Provider Internal Medicine Gastroenterology
DX: R11.0 Nausea (principal); R10.13 Epigastric pain
CPT/HCPCS: 36415; 80053; 82150; 83690

== ENCOUNTER 2022-08-04 10:33 | Outpatient (CLI) | payer OTHER, SELFPAY ==
--- NOTE | ~2022-08-04 | MM_ITS ---
EXAMINATION: MM screening julito BI w yesenia HISTORY: Screening mammogram TECHNIQUE: Craniocaudal and mediolateral oblique 3-D tomosynthesis images were obtained and synthetic 2-D images were generated. CAD analysis was submitted and interpreted. COMPARISON: 02/18/2010 bilateral diagnostic mammogram and bilateral complete breast ultrasound examinat ion BREAST PARENCHYMAL COMPOSITION: The breasts are heterogeneously dense, which may obscure small masses . FINDINGS: There is an approximately 4 mm rounded described opacity partially included the very certified orthotist practice manager ior outer margin of the right breast on CC projection, possibly a benign lymph node. Diagnostic right mammogram is recommended for more definitive evaluation, with ultrasound if required. Otherwise there is no evidence of suspicious mass, calcification, or architectural distortion to sugg est malignancy in either breast. There has been no suspicious interval change. IMPRESSION: 4 mm mass is partially included the very posterior outer margin of the right breast, possibly a lymph node. Diagnostic right mammogram is recommended for more definitive evaluation can with ultrasound i f required BI-RADS Category 0: Incomplete: Needs additional imaging evaluation. Reviewed, dictated and finalized at location A. IMPRESSION: 4 mm mass is partially included the very posterior outer margin of the right br east, possibly a lymph node. Diagnostic right mammogram is recommended for more definitive evaluation can with ultrasound if required BI-RADS Category 0: Incomplete: Needs additional imaging evaluation.
== END 2022-08-04 10:34 | disposition home or self-care (01) ==
LOC: ANHIMG 10:36
PROVIDERS: PCP Family Medicine; Visit Provider Obstetrics & Gynecology
DX: Z12.31 Encounter for screening mammogram for malignant neoplasm of breast (principal); N63.10 Unspecified lump in the right breast, unspecified quadrant
CPT/HCPCS: 77063; 77067

== ENCOUNTER 2022-08-21 10:14 | Outpatient (CLI) | payer OTHER, BC, SELFPAY ==
--- NOTE | ~2022-08-21 | MM_ITS ---
EXAMINATION: MM diagnostic julito RT w yesenia HISTORY: Right breast mass on screening mammogram TECHNIQUE: Additional 3-D tomosynthesis images of the right breast were performed and synthetic 2-D i mages were generated. CAD analysis was submitted and interpreted. COMPARISON: 08/04/2022, 02/18/2010 FINDINGS: Additional mammographic views demonstrate a stable intramammary lymph node in the posterior third of the upper outer quadrant of the breast. No suspicious mass, calcification, or architectural distortion are identified. IMPRESSION: 1. No mammographic evidence of malignancy. 2. Recommend routine screening mammography in one year. BI-RADS Category 2: Benign finding(s). Reviewed, dictated and finalized at location A.
== END 2022-08-21 10:15 | disposition home or self-care (01) ==
LOC: CHSIMG 10:22
PROVIDERS: PCP Family Medicine; Visit Provider Obstetrics & Gynecology
DX: R92.8 Other abnormal and inconclusive findings on diagnostic imaging of breast (principal)
CPT/HCPCS: 77061; 77065; G0279

== ENCOUNTER 2022-11-19 17:18 | Outpatient (CLI) | payer OTHER, BC, SELFPAY ==
[2022-11-19 17:47] LABS: Alanine Aminotransferase 52 U/L (6-35); Alkaline Phosphatase 117 U/L (38-126); Amylase 64 U/L (30-110); Anion Gap 6 mmol/L (8-16); Aspartate Amino Transferase 75 U/L (14-36); Bilirubin,Total 0.3 mg/dL (0.2-1.3); Blood Urea Nitrogen 7 mg/dL (7-17); Calcium 8.7 mg/dL (8.4-10.2); Carbon Dioxide 34 mmol/L (22-30); Chloride 99 mmol/L (98-107); Estimated Glomerular Filt Rate > 60; Glucose 107 mg/dL (65-110); Lipase 22 U/L (23-300); Potassium 3.6 mmol/L (3.4-5.0); Sodium 139 mmol/L (137-145)
== END 2022-11-19 17:19 | disposition home or self-care (01) ==
LOC: ANHLAB 17:19
PROVIDERS: PCP Family Medicine; Visit Provider Family Medicine
DX: R10.9 Unspecified abdominal pain (principal); Z87.19 Personal history of other diseases of the digestive system
CPT/HCPCS: 36415; 80053; 82150; 83690

== ENCOUNTER 2022-12-04 12:55 | Outpatient (CLI) | payer OTHER, BC, SELFPAY ==
[2022-12-04 14:22] LABS: Strep Group A RT-PCR NOT DETECTED (Negative)
[2022-12-04 14:37] LABS: Influenza A QL RT-PCR Negative (Negative); Influenza B QL RT-PCR Negative (Negative); RSV RNA, RT-PCR Negative (Negative); SARS-CoV-2 RNA PCR Negative (Negative)
== END 2022-12-04 12:56 | disposition home or self-care (01) ==
LOC: ANHLAB 12:57
PROVIDERS: PCP Family Medicine; Visit Provider Family Medicine
DX: R50.9 Fever, unspecified (principal); J02.9 Acute pharyngitis, unspecified
CPT/HCPCS: 87637; 87651

== ENCOUNTER 2022-12-19 10:26 | Emergency (ER) | payer OTHER, SELFPAY ==
--- NOTE | ~2022-12-19 | CT_ITS ---
EXAMINATION: CT brain wo con DATE: 12/19/2022 12:07 INDICATION: Altered mental status. Word salad. TECHNIQUE: Computed tomography (CT) of the head was performed without intravenous contrast. Sagittal and coronal reconstructions were performed. The mA was adjusted according to patient size. Iterative reconstruction technique was employed. The dose-length product was 605.33 mGy-cm. COMPARISON: Brain MR dated 11/18/2013 FINDINGS: No acute intracranial hemorrhage, acute infarction or abnormal extra axial fluid collection. Ventricl es are normal and symmetric. No mass/mass effect. The orbits, paranasal sinuses and mastoid air cells are normal. IMPRESSION: 1. Normal head CT. Reviewed, dictated and finalized at location A. IMPRESSION: 1. Normal head CT.
[2022-12-19 10:34] VITALS: BP 105/72; PULSE 115; RESP 14; TEMP 36.7; O2SAT 98
--- NOTE | 2022-12-19 11:35 | PC.NURSE ---
Pt experiencing word salad, extremely anxious, mother states pt stopped her Xanax & hydrocodone 5 days ago, experienced increase agitation. Pt denies S/I or H/I. States she has been here for 10 hours on 2 and 2 hold. Pt unable to be oriented.
--- NOTE | 2022-12-19 11:59 | ECG_ITS ---
Measurements Intervals [place] Rate: 94 P: 76 VA: 145 QRS: 79 QRSD: 101 T: 43 QT: 339 QTc: 426 Interpretive Statements SINUS RHYTHM NONSPECIFIC T-WAVE ABNORMALITY- ANTERIOR LEADS BORDERLINE ECG COMPARED TO ECG 06/25/2020 10:12:28 NO SIGNIFICANT CHANGES Electronically Signed On 12-19-2022 12:48:11 CDT by Brett Dozier D.O.
--- NOTE | 2022-12-19 11:59 | ED.PSYCH ---
HPI - Psych General Chief Complaint: Psychiatric Symptoms <TROY George Last Filed: 12/19/22 20:07> Stated Complaint: Irrational thought process. <TROY George Last Filed: 12/19/22 20:07> Time Seen by Provider: 12/19/22 10:56 <Kirti Peraza PA-C - Last Filed: 12/19/22 20:07> Source: patient and family <TROY George Last Filed: 12/19/22 20:07> Mode of arrival: ambulatory <TROY George Last Filed: 12/19/22 20:07> Limitations: altered mental status and clinical condition <TROY George Last Filed: 12/19/22 20:07> History of Present Illness HPI Narrative: Patient is a 42 y/o female, with PMH of fibromyalgia, cPTSD, depression, anxiety, who presents to the ED with her mother with report of AMS. Mother reports patient has been acting strange over the last 4 days. Speech has been scrambled, not appropriate to the conversation. She states patient has been having bizarre thoughts, bizarre speech, speaking to people who are not there. Mother reports patient has stopped taking her Xanax and [place] abruptly 4 days ago. Patient is unable to explain why. Patient does feel that her speech is altered, but is unable to describe this further. She denies any other physical symptoms at this time. Denies SI or HI. <Kirti Peraza PA-C - Last Filed: 12/19/22 20:07> Related Data Home Medications: Home Medications Medication Instructions Recorded Confirmed alprazolam 2 mg tablet 2 mg PO Q4H PRN anxiety 12/10/22 12/10/22 levetiracetam 250 mg tablet 250 mg PO BID 12/10/22 12/10/22 ropinirole 2 mg tablet 2 mg PO DAILY 12/10/22 12/10/22 sertraline 100 mg tablet 100 mg PO DAILY 12/10/22 12/10/22 <TROY George Last Filed: 12/19/22 20:07> Allergies/Adverse Reactions: Allergies Allergy/AdvReac Type Severity Reaction Status Date / Time Iodinated Contrast Media Allergy Severe Swelling Verified 12/19/22 15:39 of Lip/Tongue/Throat, DYSPNEA levofloxacin Allergy Severe Anaphylactic Verified 12/19/22 15:39 Shock mirtazapine Allergy Severe Unknown Verified 12/19/22 15:39 paroxetine Allergy Severe Unknown Verified 12/19/22 15:39 Sulfa (Sulfonamide Allergy Severe Unknown Verified 12/19/22 15:39 Antibiotics) sulfamethoxazole Allergy Severe Anaphylactic Verified 12/19/22 15:39 Shock trimethoprim Allergy Severe Anaphylactic Verified 12/19/22 15:39 Shock acetaminophen Allergy Intermediate Fainting Verified 12/19/22 15:39 [From Tylenol-Codeine #3] codeine Allergy Intermediate Fainting Verified 12/19/22 15:39 [From Tylenol-Codeine #3] Penicillins Allergy Mild Unknown Verified 12/19/22 15:39 Contrast Media Allergy Severe THROAT Uncoded 12/10/22 08:15 SWELLING, DYSPNEA <Kirti Peraza PA-C - Last Filed: 12/19/22 20:07> Review of Systems Review of Systems: CONSTITUTIONAL: Denies fever, chills, or sweats. NEUROLOGIC: See HPI. PSYCHIATRIC: See HPI. <Kirti Peraza PA-C - Last Filed: 12/19/22 20:07> All systems reviewed & are unremarkable except as noted in HPI and below <Kirti Peraza PA-C - Last Filed: 12/19/22 20:07> [facility] Past Medical History Medical History: Medical History Chronic neck and back pain Depression Dysmenorrhea, unspecified Fibroids Fibromyalgia Generalized anxiety disorder GERD without esophagitis Hx of pancreatitis (~06/2020) Iron deficiency anemia due to chronic blood loss Migraine Mitral and aortic regurgitation Muscle cramps PTSD (post-traumatic stress disorder) Restless legs Rheumatoid arthritis <Kirti Peraza PA-C - Last Filed: 12/19/22 20:07> Surgical History Surgical History: Surgical History History of tonsillectomy (~1987) <Kirti Sloan
[2022-12-19 12:44] LABS: Alanine Aminotransferase 40 U/L (6-35); Albumin Level 4.9 g/dL (3.5-5.1); Alkaline Phosphatase 154 U/L (38-126); Anion Gap 14 mmol/L (8-16); Aspartate Amino Transferase 43 U/L (14-36); Basophils Absolute Auto 0.1 K/mm3 (0.0-0.1); Basophils Percent Auto 0.6 % (0.2-1.2); Bilirubin,Total 0.9 mg/dL (0.2-1.3); Blood Urea Nitrogen 6 mg/dL (7-17); Calcium 9.6 mg/dL (8.4-10.2); Carbon Dioxide 27 mmol/L (22-30); Chloride 98 mmol/L (98-107); Eosinophils Percent Auto 0.2 % (0-4.4); Estimated CRCL calculation 99 ml/min; Estimated Glomerular Filt Rate > 60; Glucose 135 mg/dL (65-110); Hematocrit 43.1 % (37.0-47.0); Hemoglobin 14.2 g/dL (12.0-15.0); Immature Granulocyte Absolute 0.03 K/mm3 (0.00-0.031); Immature Granulocyte Percent A 0.3 % (0-0.5); Lymphocytes Absolute Auto 1.31 K/mm3 (0.9-3.2); Lymphocytes Percent Auto 14.7 % (18.3-44.2); Mean Corpuscular HGB Conc 32.9 g/dl (32-36); Mean Corpuscular Hemoglobin 32.3 pg (26-34); Mean Corpuscular Volume 98.2 fl (80-100); Mean Platelet Volume 9.6 fl (7.4-10.4); Monocytes Absolute Auto 0.5 K/mm3 (0.1-0.6); Neutrophils Percent Auto 78.2 % (45.5-73.1); Platelet Count Result 525 k/mm3 (150-375); Potassium 2.9 mmol/L (3.4-5.0); Red Blood Count 4.39 M/mm3 (4.2-5.4); Red Cell Distribution Width 12.8 % (11.5-14.5); Sodium 139 mmol/L (137-145); White Blood Count 8.9 K/mm3 (4.5-10.0)
--- NOTE | 2022-12-19 12:58 | PC.NURSE ---
lab called regarding add ons - magnesium and CK.
[2022-12-19 13:00] VITALS: BP 112/79; PULSE 98; RESP 18; O2SAT 98
[2022-12-19 13:10] LABS: SARS-CoV-2 RNA PCR Negative (Negative)
[2022-12-19] MEDS: POTASSIUM CHLORIDE 20 MEQ ER TABLET 40 MEQ PO (13:13)
[2022-12-19 13:14] LABS: Thyroid Stimulating Hormone 0.519 uIU/mL (0.465-4.680)
[2022-12-19 13:16] LABS: Creatine Kinase 50 U/L (30-135); Magnesium 2.3 mg/dL (1.6-2.3)
[2022-12-19] MEDS: SODIUM CHLORIDE 0.9% IV 1,000 ML 999 ML IV CONT (13:28)
[2022-12-19 13:33] LABS: Acetaminophen < 10 ug/mL (10-30); Ethanol < 10 mg/dL (<10); Salicylate < 1.0 mg/dL (2-20)
[2022-12-19] MEDS: KCL 20 MEQ/SW 100 ML 100 ML 50 MEQ IVPB (13:35)
[2022-12-19 14:31] VITALS: BP 123/84; PULSE 108; RESP 18; TEMP 36.4; O2SAT 98
[2022-12-19 14:43] LABS: Appearance Urine Clear (Clear); Bilirubin Urine Negative (Negative); Blood Urine Negative (Negative); Color Urine Yellow (Yellow); Glucose Urine UA Negative (Negative); Ketones Urine Negative (Negative); Leukocyte Esterase Ur Negative LEU/UL (Negative); Nitrate Urine Negative (Negative); Protein Urine Negative (Negative); Specific Grav Ur 1.015 (1.001-1.035); Urobilinogen Urine 0.2 mg/dL (<2.0); pH Urine 6.5 (5.0-9.0)
[2022-12-19 15:01] LABS: Amphetamine Screen Urine Negative (Negative); Barbiturate Screen Urine Negative (Negative); Benzodiazepines Screen Urine Positive (Negative); Cannabinoid Screen Urine Negative (Negative); Cocaine Screen Urine Negative (Negative); Methadone Screen Urine Negative (Negative); Opiate Screen Urine Positive (Negative); Phencyclidine Screen Urine Negative (Negative)
[2022-12-19 15:06] LABS: Add Urine Microscopic? NO
[2022-12-19 17:07] VITALS: BP 126/75; PULSE 100; RESP 18; O2SAT 98
[2022-12-19] MEDS: LORazepam INJ (*CRX) 2 MG/ML VIAL 0.5 MG IV PUSH (17:26)
[2022-12-19] MEDS: SODIUM CHLORIDE 0.9% IV 1,000 ML 100 ML IV CONT (18:15)
--- NOTE | 2022-12-19 18:38 | PC.NURSE ---
Pt medically cleared for evaluation per Kirti LYN
--- NOTE | 2022-12-19 19:14 | PC.NURSE ---
Assumed care of pt from [facility] at this time.
--- NOTE | 2022-12-19 19:27 | PM.IMCN ---
Assessment and Plan Assessment and plan (1) Psychosis: Code(s): F29 - Unspecified psychosis not due to a substance or known physiological condition Status: Acute Assessment and Plan: Patient presents with 4 days history of bizarre behavior, hallucinations indicating acute psychosis. labs are unremarkable except for mild hypokalemia which has been replaced in the ED. CT head is negative for any acute intracranial findings. UDS positive for opiates and benzos, which is consistent with her chronic usage. UA Is negative for infection. COVID swab is negative. TSH is normal. alcohol level is negative. no prior history of alcohol use. no focal neurological deficit noted on clinical evaluation. underlying history of anxiety and depression. Recent lack of sleep. I recommend psychiatric evaluation which is needed to evaluate for underlying psychiatric reason for her clincal presentation. and will be best served if she is transferred where such evaluation can occur. no obvious medical reason for her clinical condition evident. discussed with ED physician and crisis team will be contacted for further evaluation. HPI Date of Consult Consult date: 12/19/22 Primary Care Provider: Francy nSeed MD Consult Narrative Narrative: Eve Chance is a 42 year old female who was brought in by her mother with altered mental status and acting strange and personality change, has been hallcuinating and bizarre behavior and thought. she is on xanax and norco at home. she has been doing this since past 4 days. 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 she has also not been sleeping for past few nights. she has not had any such episode prior to this. she has undelrying hx of anxiety and depression but never beeen diagnosed with sumaya or other psychotic disorder. she has not been ever been admitted to the psych facility as well. she was evaluated in the ED> uds positive for opiates and benzo, which she normally takes. alcohol, salicylate is negative. all other drugs are negatgive. her vitals has been stable. EKG with sinus rhythm. wbc normal. bmp is normal. lft are mildly elevated, which is also elevated last month. she does not drink alcohol or does any other drugs. no hx of fever, chills. review of system could not be completed due to her clinical condition. Patient is a 42 y/o female, with PMH of fibromyalgia, cPTSD, depression, anxiety, who presents to the ED with her mother with report of AMS.? Mother reports patient has been acting strange over the last 4 days.? Speech has been scrambled, not appropriate to the conversation.? She states patient has been having bizarre thoughts, bizarre speech, speaking to people who are not there.? Mother reports patient has stopped taking her Xanax and Sumner abruptly 4 days ago.? Patient is unable to explain why.? Patient does feel that her speech is altered, but is unable to describe this further.? She denies any other physical symptoms at this time.? Denies SI or HI. Review of Systems Review of Systems: ROS unobtainable: Yes unobtainable due to mental status PMFSH Past Medical History Medical History Chronic neck and back pain Depression Dysmenorrhea, unspecified Fibroids Fibromyalgia Generalized anxiety disorder GERD without esophagitis Hx of pancreatitis (~06/2020) Iron deficiency anemia due to chronic blood loss Migraine Mitral and aortic regurgitation Muscle cramps PTSD (post-traumatic stress disorder) Restless legs Rheumatoid arthritis Surgical History Surgical History History of tonsillectomy (~1987) Family History Family History Sibling Renal failure COVID-19 Diabetes mellitus Hypertension Depression Anxiety Father Depression Anxiety Mother Diabetes gastoni
--- NOTE | 2022-12-19 20:10 | PM.IMHP ---
H&P: HPI History of Present Illness Date/Time: 12/19/22 20:10 [facility] Past Medical History Medical History Chronic neck and back pain Depression Dysmenorrhea, unspecified Fibroids Fibromyalgia Generalized anxiety disorder GERD without esophagitis Hx of pancreatitis (~06/2020) Iron deficiency anemia due to chronic blood loss Migraine Mitral and aortic regurgitation Muscle cramps PTSD (post-traumatic stress disorder) Restless legs Rheumatoid arthritis Surgical History Surgical History History of tonsillectomy (~1987) Family History Family History Sibling Renal failure COVID-19 Diabetes mellitus Hypertension Depression Anxiety Father Depression Anxiety Mother Diabetes mellitus Hypertension Depression Anxiety Heart disease Grandparent Alcoholic Asthma Cancer Diabetes mellitus Hypertension Anxiety Depression Heart disease Social History Social History Social History: The patient is to [place]. He is her durable power group exercise manager for healthcare, she wishes to be a full code. She and her are certified foster parents, no kids at this time. 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 Patient has a master's degree, with goal of med school, she did not pursue med school as planned. The patient is lifelong nonsmoker. She denies any alcohol use marijuana use or illicit drugs. Smoking status: Never smoker Second hand tobacco smoke exposure: No Alcohol intake: never Substance use: never Living arrangements: with family Gender identity (if verbalized by the patient): Female Sexual Orientation (if Verbalized by the Patient): Straight or Heterosexual Spiritual care concerns: No Meds Home Medications and Allergies Home Medications Medication Instructions Recorded Confirmed Type hydrocodone 10 mg-acetaminophen 1 tablet PO QID PRN Pain #120 tabs 01/04/21 12/10/22 Rx 325 mg tablet ondansetron HCl 4 mg tablet 4 mg PO Q6H PRN nausea and 06/17/22 12/10/22 Rx vomiting #120 tabs alprazolam 2 mg tablet 2 mg PO Q4H PRN anxiety 12/10/22 12/10/22 History clindamycin HCl 300 mg capsule 300 mg PO Q6H #20 caps 12/10/22 12/10/22 Rx levetiracetam 250 mg tablet 250 mg PO BID 12/10/22 12/10/22 History ropinirole 2 mg tablet 2 mg PO DAILY 12/10/22 12/10/22 History sertraline 100 mg tablet 100 mg PO DAILY 12/10/22 12/10/22 History cholecalciferol (vitamin D3) 1,250 1,250 mcg PO WEEKLY #12 tabs 12/18/22 Rx mcg (50,000 unit) tablet cyclobenzaprine 10 mg tablet 10 mg PO Q8H PRN muscle spasm #270 12/18/22 Rx tabs metoprolol succinate 25 mg 25 mg PO DAILY #90 tabs 12/18/22 Rx tablet,extended release 24 hr Allergies Allergy/AdvReac Type Severity Reaction Status Date / Time Iodinated Contrast Media Allergy Severe Swelling Verified 12/19/22 15:39 of Lip/Tongue/Throat, DYSPNEA levofloxacin Allergy Severe Anaphylactic Verified 12/19/22 15:39 Shock mirtazapine Allergy Severe Unknown Verified 12/19/22 15:39 paroxetine Allergy Severe Unknown Verified 12/19/22 15:39 Sulfa (Sulfonamide Allergy Severe Unknown Verified 12/19/22 15:39 Antibiotics) sulfamethoxazole Allergy Severe Anaphylactic Verified 12/19/22 15:39 Shock trimethoprim Allergy Severe Anaphylactic Verified 12/19/22 15:39 Shock acetaminophen Allergy Intermediate Fainting Verified 12/19/22 15:39 [From Tylenol-Codeine #3] codeine Allergy Intermediate Fainting Verified 12/19/22 15:39 [From Tylenol-Codeine #3] Penicillins Allergy Mild Unknown Verified 12/19/22 15:39 Contrast Media Allergy Severe THROAT Uncoded 12/10/22 08:15 SWELLING, DYSPNEA Vital Signs Vital Signs - 24 hr 12/19/22 10:34 12/19/22 13
--- NOTE | 2022-12-19 20:50 | PC.NURSE ---
[facility] called for chart to be faxed over again to [phone]. This RN faxed chart along w fax cover letter.
--- NOTE | 2022-12-19 21:34 | PC.NURSE ---
Maru from [facility] called to notify this RN pt was accepted to [facility].
--- NOTE | 2022-12-19 22:00 | PC.NURSE ---
[facility] w [facility]. Pt to go to rm [id number]. Nurse to nurse report to be called [phone]. Pt accepted by Dr. Allison.
[2022-12-19 22:07] LABS: Anion Gap 4 mmol/L (8-16); Blood Urea Nitrogen 6 mg/dL (7-17); Calcium 8.4 mg/dL (8.4-10.2); Carbon Dioxide 26 mmol/L (22-30); Chloride 106 mmol/L (98-107); Estimated CRCL calculation 99 ml/min; Estimated Glomerular Filt Rate > 60; Glucose 112 mg/dL (65-110); Potassium 3.3 mmol/L (3.4-5.0); Sodium 136 mmol/L (137-145)
[2022-12-19 22:26] VITALS: BP 130/75; PULSE 70; RESP 16; O2SAT 100
--- NOTE | 2022-12-19 22:34 | PC.NURSE ---
Alejandro here to xfr pt. Pt changed into scrubs, IV removed, belongings sent home w mother.
--- NOTE | 2022-12-19 22:52 | PC.NURSE ---
Report called to AL Contreras at [facility]. Transport set up by ADONAY Carreno department secretary. Allen to be here around 2300.
== END 2022-12-19 22:55 ==
PROVIDERS: Emergency Provider Physician Assistant; PCP Family Medicine
DX: F23 Brief psychotic disorder (principal); R41.82 Altered mental status, unspecified; R47.01 Aphasia; E87.6 Hypokalemia; Z11.52 Encounter for screening for COVID-19; M79.7 Fibromyalgia; K21.9 Gastro-esophageal reflux disease without esophagitis; M06.9 Rheumatoid arthritis, unspecified; F43.10 Post-traumatic stress disorder, unspecified; F41.9 Anxiety disorder, unspecified; F32.A Depression, unspecified; G25.81 Restless legs syndrome; R94.31 Abnormal electrocardiogram [ECG] [EKG]
CPT/HCPCS: 36415; 70450; 80048; 80053; 80307; 81003; 81025; 82550; 83735; 84443; 85025; 87635; 93005; 96361; 96365; 96366; 96375; 99285; A9270; J2060; J3480; J7030

== ENCOUNTER 2024-06-07 11:41 | Outpatient (CLI) | payer MEDICARE, SELFPAY ==
[2024-06-07 12:18] LABS: Basophils Absolute Auto 0.1 K/mm3 (0.0-0.1); Eosinophils Absolute Auto 0.3 K/mm3 (0-0.3); Eosinophils Percent Auto 4.2 % (0-4.4); Hematocrit 36.1 % (37.0-47.0); Hemoglobin 11.5 g/dL (12.0-15.0); Immature Granulocyte Absolute 0.01 K/mm3 (0.00-0.031); Immature Granulocyte Percent A 0.2 % (0-0.5); Lymphocytes Absolute Auto 3.02 K/mm3 (0.9-3.2); Lymphocytes Percent Auto 50.6 % (18.3-44.2); Mean Corpuscular HGB Conc 31.9 g/dl (32-36); Mean Corpuscular Hemoglobin 31.1 pg (26-34); Mean Corpuscular Volume 97.6 fl (80-100); Mean Platelet Volume 9.6 fl (7.4-10.4); Monocytes Absolute Auto 0.4 K/mm3 (0.1-0.6); Monocytes Percent Auto 6.2 % (2.6-8.5); Neutrophils Absolute Auto 2.3 K/mm3 (1.3-6.7); Neutrophils Percent Auto 37.8 % (45.5-73.1); Platelet Count Result 290 k/mm3 (150-375); Red Cell Distribution Width 13.8 % (11.5-14.5)
[2024-06-07 12:37] LABS: Iron 82 ug/dL (37-170)
[2024-06-07 12:40] LABS: Alanine Aminotransferase 90 U/L (6-35); Albumin Level 3.8 g/dL (3.5-5.1); Alkaline Phosphatase 123 U/L (38-126); Anion Gap 6 mmol/L (4-12); Aspartate Amino Transferase 124 U/L (14-36); Bilirubin,Total 0.5 mg/dL (0.2-1.3); Blood Urea Nitrogen 7 mg/dL (7-17); Calcium 8.5 mg/dL (8.4-10.2); Carbon Dioxide 31 mmol/L (22-30); Chloride 101 mmol/L (98-107); Cholesterol 112 mg/dL (0-200); Estimated Glomerular Filt Rate > 60; Glucose 98 mg/dL (65-110); HDL Direct 38 mg/dL; Potassium 3.8 mmol/L (3.4-5.0); Sodium 138 mmol/L (137-145); Triglycerides 74 mg/dL (<150)
[2024-06-07 12:43] LABS: Hemoglobin A1C 5.2 % (<5.7)
[2024-06-07 12:51] LABS: LDL Cholesterol Direct 41 mg/dL; Percent Iron Saturation 26 % (20-50)
--- OUTSIDE RECORDS SUMMARY | 2024-06-07 13:32 | XMS_ITS | CONTINUITY OF CARE DOCUMENT ---
Author Name emir field Address Unknown Organization [facility] Address [address] [place] [address] Phone [phone] Care Team Providers Care Investigative Assistant Name Role Phone Wayne VILLAGOMEZ, Hamlet Unavailable [phone] ZOHAIB BROUSSARD MD Unavailable ZOHAIB BROUSSARD MD Unavailable PROBLEMS Condition Status Date Provider Notes Cardiology examination active Hamlet Black MD Palpitations active Hamlet Black MD Abnormal stress echo active Hamlet [place] Personal history of COVID-19 active Hamlet hdez MD Anxiety disorder active Hamlet Black MD Breast lump or mass active Hamlet Black MD Uterine disorder active Hamlet Black MD ENCOUNTERS Date Type Provider Location Encounter Diag nosis 6 - 6 In-person encounter Office Visit Hamlet Black MD [facility] Breast lump or massUterine disorder 4 - 4 In-person encounter Office Visit Hamlet Black MD [facility] Office 7 - 7 In-person encounter Office Visit Hamlet Black MD [facility] Office Cardiology examinationPalpitationsAbnormal stress echoPersonal history of COVID-19Anxiety disorder VITAL SIGNS Date Observation Value Provider Body Mass Index (Ratio) 21.13 kg/m2 Zach Black MD blood pressure, diastolic 64 mm[Hg] Trudy nkLogic blood pressure, systolic 95 mm[Hg] Amy kLogic pulse rate 90 /min James da y blood pressure, cuff size regular Ja rret blood pressure, diastolic 64 mm[Hg] Ja rret blood pressure, systolic 95 mm[Hg] Jar ret oxygen saturation, oximetry 96 % James respiratory rate E&M 16 /min James weight E&M 127 [lb_av] James y height E&M 65 [in_i] [facility] y Body Mass Index (Ratio) 20.17 kg/m2 Zach Black MD blood pressure, cuff size regular [facility] blood pressure, diastolic 89 mm[Hg] [facility] blood pressure, systolic 118 mm[Hg] [facility] oxygen saturation, oximetry 96 % [facility] respiratory rate E&M 16 /min [facility] pulse rate 90 /min [facility] weight E&M 121.2 [lb_av] [facility] height E&M 65 [in_i] [facility] Body Mass Index (Ratio) 20.13 kg/m2 Zach Black MD blood pressure, diastolic 73 mm[Hg] Trudy nkLogic blood pressure, systolic 97 mm[Hg] Amy kLogic blood pressure, diastolic 73 mm[Hg] Ke rri Aleksuenekendall blood pressure, systolic 97 mm[Hg] Terence ri Gruenenfeldpalmira blood pressure, cuff size regular Ke eleuterio Finksendyfarhadabdiel oxygen saturation, oximetry 95 % Kajal Finkvenkata respiratory rate E&M 14 /min Kajal Isabel vonnielindakendall pulse rate 107 /min Kajal Finksendytim lder weight E&M 121 [lb_av] Kajal Finksendytim lder height E&M 65 [in_i] Kajal Finkeugenia lder ALLERGIES Allergy Name Onset Date Reaction Criticality Status IVP DYE High Criticality active REMERON High Criticality active BACTRIM High Criticality active PAXIL High Criticality active LEVAQUIN High Criticality active PCN High Criticality active SULFA High Criticality active HISTORY OF MEDICATION USE Medication Status Instructions Dates Provider Indications Com ments alprazolam 2 mg tablet active TAKE 1 TABLET BY MOUTH 4 TIMES A DAY Hamlet Black MD ondansetron 4 mg tablet,disintegrat ing active Take 1 tablet on tongue twice a day as needed nausea Hamlet Black MD metoprolol succinate 25 mg tablet extended release 24 hr completed Take 1 tablet by mouth once a day as needed Hamlet Black MD alprazolam 2 mg tablet completed TAKE 1 TABLET BY MOUTH FOUR TIMES DAILY - Hamlet Black MD Zithromax Z-Kevan 250 mg tablet completed as directed verbal given to [facility] - Mariana Manriquez Zithromax 1 gram packet completed Take 1 packet by mouth as directed take 2 pills today then 1 every day till pack is gone - Demetria Knight Zithromax 1 gram packet completed - Kajal Ellison alprazolam 2 mg tablet completed 1 tablet three times a day - Hamlet Black MD alprazolam 2 mg tablet completed 1 tablet four times a day - Hamlet Black MD sumatriptan succinate 6 mg/0.5 mL pen injector active Use as directed Mariana Manriquez ondansetron 4 mg tablet,disintegrat ing completed Take 1 tablet on tongue twice a day as needed - Jessica Randolph RN cyclobenzaprine 10 mg tablet completed TAKE 1 TABLET BY MOUTH THREE TIMES A DAY NEEDED - James García alprazolam 2 mg tablet completed - Hamlet Black MD hydrocodone-acetam inophen 10-325 mg tablet active TAKE 1 TABLET BY MOUTH 4 TIMES A DAY NEEDED FOR PAIN Kajal Ellison metoprolol succinate 25 mg tablet extended release 24 hr completed Take 1 tablet by mouth once a day - Hamlet Black MD omeprazole 20 mg capsule,delayed release(DR/EC) completed Take 1 capsule by mouth as directed as needed - James García SOCIAL HISTORY Date Observation Value Provider passive cigarette sm miki exposure no Hamlet Black MD smoking status Never smoker Hamlet Black MD social history E&M Marital Statu s: Divorce C hildren: 0 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 Hamlet Black MD smoking status Never smoker Mariana Manriquez passive cigarette sm miki exposure no Hamlet Black MD social history reviewed E&M revi ewed - no changes required Hamlet Black MD social history E&M Marital Statu s: C hildren: O ccupation: Smoking History: P atient has never smoked. Hamlet Black MD smoking status Never smoker Kajal beasley FAMILY HISTORY Family Member Condition First Degree Blood Relative No Known Fam candy History INSURANCE PROVIDERS Payer name Policy type / Coverage type [employer] red constitution party ID AARP MEDICARE ADVANTAGE ([facility] COMPLETE PPO) Other [id number] [facility] Medicaid 0 [id number] ADVANCE DIRECTIVES Name Date DISCUSSED - NO DECISION MADE TREATMENT PLAN Date Name Performer [id number],S, Hamlet guerra MD [id number],S, Hamlet guerra MD [id number],B, Hamlet guerra MD [id number],S, Hamlet guerra MD [id number],S, Hamlet guerra MD [id number],C,S econdary to anxiety/PTSD. No pathology here. D/C metoprolol due to low BP. Patient will have intermittant tachycardia due to anxiety and lingering Covid effects. This will wear off over time. Hamlet Black MD [id number],C,A bnormalities are non-specific. ECG unremarkable. Patient is very athletic and has no risk factors. No further evaluation needed at this time. Hamlet Black MD Cardiology:Has undia gnosed uterine masses W ill refer to dental mechanic Hamlet Black MD Cardiology:Needs diagnostic christy gram with U/S Hamlet Black MD Cardiology Hamlet Black MD Cardiology:No CAD Hamlet Black MD Cardiology Hamlet Black MD Cardiology Hamlet Black MD Cardiology Hamlet Black MD Cardiology Hamlet Black MD Cardiology Hamlet Black MD Cardiology:Secondary to anxiety/PTSD. No pathology here. D/C metoprolol due to low BP. Patient will have intermittant tachycardia due to anxiety and lingering Covid effects. This will wear off over time. Hamlet Black MD Cardiology:Abnormali ties are non-specific. ECG unremarkable. Patient is very athletic and has no risk factors. No further evaluation needed at this time. Hamlet Black MD Date Name HEPATIC FUNCTION FINN EL Vitamin D, 25-Hydrox y VITAMIN B12 MAGNESIUM LIPASE TSH, free T4, total T3 IRON AND TOTAL IRON BINDING CAPACITY FERRITIN CBC (INCLUDES DIFF/P LT) LIPID PANEL COMPREHENSIVE METABO LIC PANEL, W/EGFR Complete Echo HISTORY OF PROCEDURES Procedure Date Procedure Name Provider Procedure Notes S tatus EKG Hamlet Black MD complete d EKG Hamlet Black MD complete d
--- OUTSIDE RECORDS SUMMARY | 2024-06-07 13:32 | XMS_ITS | Encounter Summary ---
Author Organization [facility] Address [address] [place] [id number] Care Team Providers Care Porcelain Finish Sprayer Name Role Phone Unavailable Primary Care Provider Unavailabl e Encounter Details Date Type Department Care Team (Late st Contact Info) Description 11/19/2016 Abstract [facility] CONVERSION [address] [place] [address] , Generic Conversion, Social History Tobacco Use Types Packs/Day Years Used Date Smoking Tobacco: Never Assessed Comments Unknown Sex and Gender Information Value Date Recorded Sex Assigned at Not on file Legal Sex Female 12:54 PM CDT Gender Identity Not on file Sexual Orientation Not on file documented as of this encounter Plan of Treatment Not on file documented as of this encounter Visit Diagnoses Not on filedocumented in this encounter
--- OUTSIDE RECORDS SUMMARY | 2024-06-07 13:32 | XMS_ITS | Referral Summary ---
Author Organization [facility] Address [address] [place] [id number] Care Team Providers Care Bird Trapper Name Role Phone Julieta Mariscal NP Primary Care Provider [phone] Allergies Active Allergy Reactions Criticality Noted Date Comments Cephalosporins Anaphylaxis High 02/18/2018 Anaphylaxis Iodinated Contrast Media Anaphylaxis High 02/20/2021 Iodine Anaphylaxis High 02/20/2021 Levofloxacin Anaphylaxis High 02/20/2021 Mirtazapine Anaphylaxis High 07/26/2013 Paroxetine Anaphylaxis High 07/26/2013 Penicillins Rash Medium 07/26/2013 Rash Prednisone Palpitations Low 02/20/2021 Shellfish Containing Products Anaphylaxis High 02/20/2021 Sulfa (Sulfonamide Antibiotics) Shortness of breath High 02/18/2018 Breathing Difficulty Sulfabenzamide Anaphylaxis High 07/26/2013 ANY SULFA product!!!!!! Sulfamethoxazole-Trimet hoprim Anaphylaxis High 12/20/2022 Medications ALPRAZolam (XANAX) 2 mg tablet Take 2 mg by mouth 3 (three) times a day as needed 1 Active HYDROcodone-acetam inophen (NORCO) 10-325 mg per tablet 4 (four) times a day (with meals and nightly) 1 Active Estarylla 0.25-35 mg-mcg per tablet 1 tab daily 1 Active ondansetron ODT (ZOFRAN-ODT) 4 mg disintegrating tablet daily as needed 1 Active rOPINIRole (REQUIP) 2 mg tablet 1 tablet daily 1 Active SUMAtriptan (IMITREX) 6 mg/0.5 mL injection as needed 0 Active sertraline (ZOLOFT) 100 mg tablet 1 tablet daily 1 Active metoprolol XL (TOPROL-XL) 25 mg extended release tablet Take 1 tablet (25 mg total) by mouth daily 30 tablet 11 2 Active LORazepam (ATIVAN) 2 mg tablet Take 1 tablet (2 mg total) by mouth once as needed for anxiety (cardiac MRI) for up to 1 dose 1 tablet 2 Active cetirizine (ZyrTEC) 10 mg tablet Take 1 tablet (10 mg total) by mouth daily 3 Active cholecalciferol (VITAMIN D-3) 50,000 unit capsule Take 1 capsule (50,000 Units total) by mouth once a week 3 Active cyclobenzaprine (FLEXERIL) 10 mg tablet TAKE 1 TABLET BY MOUTH EVERY 8 HOURS NEEDED FOR MUSCLE SPASM 3 Active FeroSuL 325 mg (65 mg iron) tablet Take 1 tablet (325 mg total) by mouth daily with breakfast 3 Active levETIRAcetam (KEPPRA) 250 mg tablet Take 1 tablet (250 mg total) by mouth 2 (two) times a day 3 Active traZODone (DESYREL) 50 mg tablet Take 1 tablet (50 mg total) by mouth nightly 3 Active Active Problems Problem Noted Date Diagnosed Date Hypokalemia 12/23/2022 Benzodiazepine withdrawal with complication 07/2022 Delirium tremens 12/19/2022 Fibromyalgia 02/20/2021 Post concussion syndrome 02/20/2021 Rheumatoid arthritis 02/20/2021 Migraine with aura and witho ut status migrainosus, not intractable 02/20/2021 Astigmatism 02/20/2021 Other acute pancreatitis with uninfected necrosi s 02/20/2021 Social History Tobacco Use Types Packs/Day Years Used Date Smoking Tobacco: Never Smokeless Tobacco: Never AUDIT-C Answer Date Recorded Q1: How often do you have a drink containing alc ohol? Never 02/20/2021 Average Number of Drinks Not on file 022 Q3: How often do you have si x or more drinks on one occasion? Never 02/20/2021 Personal Safety Answer Date Recorded Getting School Help Needed Not on file 01/26 Comments Unknown Sex and Gender Information Value Date Recorded Sex Assigned at Not on file Legal Sex Female 3:19 AM METER INSTALLER Gender Identity Not on file Sexual Orientation Not on file Last Filed Vital Signs Vital Sign Reading Time Taken Comments Blood Pressure 101/75 03/15/2021 12:40 PM METER INSTALLER Pulse 76 03/15/2021 12:40 PM METER INSTALLER Temperature 36.7 C (98.1 F) 06/25/2015 9:46 PM CDT Respiratory Rate - - Oxygen Saturation 98% 03/15/2021 12:40 PM METER INSTALLER Inhaled Oxygen Concentration - - Weight 52.8 kg (116 lb 6.4 oz) 03/15/2021 12:40 PM METER INSTALLER Height 165.1 cm (5' 5 ) 03/15/2021 12:40 PM METER INSTALLER Body Mass Index 19.37 03/15/2021 12:40 PM METER INSTALLER Plan of Treatment Not on file Insurance [facility] [place] [id number] PLAN [place] PLAN [place] [facility] PLAN Care Teams Bird Trapper Relationship Specialty Start Date End Date Julieta Mariscal NP PCP - General Family Medicine 03/15/21
--- OUTSIDE RECORDS SUMMARY | 2024-06-07 13:32 | XMS_ITS | Clinical Summary ---
Author Organization [facility] Address [address] [place] [address] Care Team Providers Care Web Services Developer Name Role Phone Julieta Mariscal NP Primary Care Provider [phone] Allergies Active Allergy Reactions Criticality Noted Date [...] acute pancreatitis with uninfected necrosi s 02/20/2021 Surgical History Surgery Date Site/Laterality Comments TONSILLECTOMY Family History Medical History Relation Name Comments Mitral valve prolapse Maternal Grandmother Valvular heart disease Mother veronica l ?aortic? Relation Name Status Comments Maternal Grandmother Mother Social History Tobacco Use Types Packs/Day Years [...] on file Legal Sex Female 3:19 AM HUMAN PERFORMANCE TECHNOLOGIST Gender Identity Not on file Sexual Orientation Not on file Obstetrics History Last Filed Vital Signs Vital Sign Reading Time Taken Comments Blood Pressure 101/75 03/15/2021 12:40 PM HUMAN PERFORMANCE TECHNOLOGIST Pulse 76 03/15/2021 12:40 PM HUMAN PERFORMANCE TECHNOLOGIST Temperature 36.7 C (98.1 F) 06/25/2015 9:46 PM CDT Respiratory Rate - - Oxygen Saturation 98% 03/15/2021 12:40 PM HUMAN PERFORMANCE TECHNOLOGIST Inhaled Oxygen Concentration - - Weight 52.8 kg (116 lb 6.4 oz) 03/15/2021 12:40 PM HUMAN PERFORMANCE TECHNOLOGIST Height 165.1 cm (5' 5 ) 03/15/2021 12:40 PM HUMAN PERFORMANCE TECHNOLOGIST Body Mass Index 19.37 03/15/2021 12:40 PM HUMAN PERFORMANCE TECHNOLOGIST Plan of Treatment Health Maintenance Due Date Last Done Comments Breast Cancer Screening-Mammogram 1982 Cervical Cancer Screening 1982 Depression Screening 1982 Hepatitis C Screening 1982 DTaP/Tdap/Td Vaccine (1 - Tdap) 1993 Varicella Vaccines (1 of 2 - 13+ 2-dose series) 07/22/1995 Hepatitis B Screening 2000 Regular Well Visit/Exam 18-64 2000 Covid-19 Vaccine (2 - 2023-2 5 season) 2023 01/16/2021 Influenza Vaccine (#1) 2023 HPV Vaccines Aged Out No longer eligi ble based on patient's age to complete this topic Pneumococcal vaccine <65 Aged Out No longer eligible based on patient's age to complete this topic Insurance [facility] Care Teams Web Services Developer Relationship Specialty Start Date End Date Julieta Mariscal NP PCP - General Family Medicine 03/15/21
--- OUTSIDE RECORDS SUMMARY | 2024-06-07 13:32 | XMS_ITS | Clinical Summary ---
Author Organization [facility] Address [address] [place] [id number] Care Team Providers Care Hand Developer Name Role Phone Unavailable Primary Care Provider Unavailabl e Medications HYDROcodone-acet aminophen 10-325 MG tablet 04/19/2020 Active ESTARYLLA 0.25-35 MG-MCG tablet 04/20/2020 Active sertraline 50 MG tablet 04/22/2020 Active sertraline 100 MG tablet 03/15/2020 Active SUMAtriptan Succinate 6 MG/0.5ML Solution Auto-injector 09/27/2019 Activ e sertraline 25 MG tablet 07/23/2019 Active rOPINIRole 1 MG tablet 05/24/2019 Active TRI-SPRINTEC 0.18/0.215/0.25 MG-35 MCG tablet Take 1 tablet by mouth daily. 02/06/2020 Active ALPRAZolam 2 MG tablet 04/12/2020 Active ALPRAZolam 1 MG tablet 02/16/2020 Active Social History Tobacco Use Types Packs/Day Years Used Date Smoking Tobacco: Never Assessed Comments Unknown Sex and Gender Information Value Date Recorded Sex Assigned at Not on file Legal Sex Female 12:54 PM CDT Gender Identity Not on file Sexual Orientation Not on file Plan of Treatment Health Maintenance Due Date Last Done Comments Cervical Cancer Screening Pa p Smear (Age 30 to 64) Every 3 Years 1982 Annual Physical 1985 Hepatitis C 2000 DTaP, Tdap and Td Vaccines ( 1 - Tdap) 2001 Hepatitis B Vaccines (1 of 3 - 19+ 3-dose series) 2001 Cervical Cancer Screening Pa p with HPV Testing (Age 30 to 64) Every 5 Years 2012 Cervical Cancer Screening with HPV 2012 Mammogram Screening 2022 COVID-19 Vaccine (2023-2 5 season) 2023 HPV Vaccines Aged Out No longer eligi ble based on patient's age to complete this topic Meningococcal B Vaccine Aged Out No l onger eligible based on patient's age to complete this topic Meningococcal Vaccine Aged Out No ana antonio eligible based on patient's age to complete this topic Pneumococcal Vaccine: Pediat rics (0 to 5 Years) and At-Risk Patients (6 to 49 Years) Aged Out No longer eligible b ased on patient's age to complete this topic RSV Immunizations Under 20 Months Aged Out No longer eligible based on patient's age to complete this topic Insurance [address] [address]
--- OUTSIDE RECORDS SUMMARY | 2024-06-07 13:32 | XMS_ITS | Clinical Summary ---
Author Organization [facility] Address [address] [place] [address] Care Team Providers Care Manager E Commerce Name Role Phone Francy Sneed MD Primary Care Provider Source Comments [facility],non-owned Affiliates and Associated Physician Practices is amultiple site organization consisting of ambulatory clinics and hospital sitesin [place], [place], [place] and [place]. This disclosure is being madepursuant to the Care Everywhere program and may not contain all information available regarding this patient. Last updated 17.[facility] Allergies Active Allergy Reactions Criticality Noted Date Comments Contrast-Iodinated Agents Fo r Ct/Other Anaphylaxis High 12/20/2022 Levofloxacin Anaphylaxis High 12/20/2022 Mirtazapine Anaphylaxis High 07/26/2013 Paroxetine Anaphylaxis High 07/26/2013 Penicillins Anaphylaxis High 07/26/2013 Sulfa Drugs Anaphylaxis High 07/26/2013 ANY SULFA product!!!!!! Sulfamethoxazole W-Trimethoprim Anaphylaxis High 12/20/2022 Medications * This document contains information received from the source organization and may not represent a complete record from that organization. * Be aware that medications may not be up to date on this document. Alwaysverify current medications with the patient. ondansetron (Zofran) 4 MG tablet Take 1 (one) tablet by mouth every 6 hours as needed for Nausea/Vomit ing Active vitamin D3 (Cholecalcifero l) 25 MCG (1000 UNITS) tablet Take 5 (five) tablets by mouth every 7 days Active cyclobenzaprine (Flexeril) 10 MG tablet Take 1 (one) tablet by mouth every 8 hours as needed for Muscle Spasms Active levETIRAcetam (Keppra) 250 MG tablet Take 1 (one) tablet by mouth 2 times daily for 30 days 60 tablet 12/24/2022 Active rOPINIRole (Requip) 2 MG tablet Take 1 (one) tablet by mouth once daily for 30 days 30 tablet 12/24/2022 Active Active Problems Problem Noted Date Diagnosed Date Acute cystitis without hematuria 12/23/2022 Hypokalemia 12/23/2022 Benzodiazepine withdrawal with complication 07/2022 Delirium tremens 12/19/2022 Family History Medical History Relation Name Comments Anxiety Disorder Father Depression Father Anxiety Disorder Mother CAD (Coronary Artery Disease) Mother heart disease Depression Mother Diabetes; unknown type Mother Hypertension Mother Anxiety Disorder Natural Sibling Depression Natural Sibling Diabetes; unknown type Natural Sibling Hypertension Natural Sibling Renal Disease Natural Sibling Alcohol abuse Other Anxiety Disorder Other Asthma Other CAD (Coronary Artery Disease) Other heart disease Cancer Other Depression Other Diabetes; unknown type Other Hypertension Other Relation Name Status Comments Father Mother Alive Natural Sibling Other unknown if b rother or sister Other Alive grandparent u nknown what side of family Social History Tobacco Use Types Packs/Day Years Used Date Smoking Tobacco: Never Passive Smoke Exposure: Never Smokeless Tobacco: Never Tobacco Cessation:Counseling Given: Yes Alcohol Use Standard Drinks/Week Comments Never 0 (1 standard drink = 0.6 oz pur e alcohol) AUDIT-C Answer Date Recorded Q1: How often do you have a drink containing alcohol? Never 12/22/2022 Q2: How many drinks containi ng alcohol do you have on a typical day when you are drinking? Patient does not drink Q3: How often do you have si x or more drinks on one occasion? Never 12/22/2022 Overall Financial Resource Strain (CARDIA) Answe r Date Recorded How hard is it for you to pa y for the very basics like food, housing, medical care, and heating? Patient declined 12/22/2022 [facility] - Occupational Stress Questionnaire Answer Date Recorded Do you feel stress - tense, restless, nervous, or anxious, or unable to sleep at night because your mind is troubled all the time - these days? Patient declined 12/22/2022 Hunger Vital Sign Answer Date Recorded Within the past 12 months, y ou worried that your food would run out before you got the money to buy more. Patient declined Within the past 12 months, t he food you bought just didn't last and you didn't have money to get more. Patient declined 07/2022 PRAPARE - Transportation Answer Date Re corded In the past 12 months, has l ack of transportation kept you from medical appointments or from getting medications? Patient declined 12/22/2022 In the past 12 months, has l ack of transportation kept you from meetings, work, or from getting things needed for daily living? Patient declined 12/22/2022 Housing Stability Vital Sign Answer Abimael e Recorded In the last 12 months, was t here a time when you were not able to pay the mortgage or rent on time? Patient refused 12/23/19 23 In the last 12 months, how many places have you lived? 1 12/22/2022 In the last 12 months, was t here a time when you did not have a steady place to sleep or slept in a retirement (including now)? No 12/22/2022 Education Answer Date Recorded What is the highest level of school you have completed or the highest degree you have received? 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 Gender Identity Not on file Sexual Orientation Not on file Last Filed Vital Signs Vital Sign Reading Time Taken Comments Blood Pressure 102/76 12/24/2022 7:16 AM ASSEMBLER [employer]ATCHES AND SPRINGS Pulse 94 12/24/2022 7:16 AM ASSEMBLER [employer]ATCHES [employer]INGS Temperature 36.7 C (98.1 F) 12/24/2022 7:16 AM ASSEMBLER [employer]ATCHES [employer]INGS Respiratory Rate 16 12/24/2022 7:16 AM ASSEMBLER [employer]ATCHES [employer]INGS Oxygen Saturation 96% 12/24/2022 7:16 AM ASSEMBLER [employer]ATCHES [employer]INGS Inhaled Oxygen Concentration - - Weight 52.3 kg (115 lb 4.8 oz) 12/22/2022 1:55 A M ASSEMBLER [employer]ES [employer]INGS Height 162.6 cm (5' 4 ) 12/22/2022 1:55 AM ASSEMBLER [employer]ATCHES [employer] SPRINGS Body Mass Index 19.79 12/22/2022 1:55 AM ASSEMBLER [employer]INGS Plan of Treatment Health Maintenance Due Date Last Done Comments LIPID TESTING 1982 MAMMOGRAM 1982 PAP SMEAR 1982 HIV SCREENING 1997 HEPATITIS C SCREENING 07/16/2000 DTAP/TDAP/TD VACCINES (1 - Tdap) 2001 HEPATITIS B VACCINE (1 of 3 - 19+ 3-dose series) 2001 COVID-19 VACCINE (2 - 2023-2 5 season) 2023 01/16/2021 DEPRESSION SCREENING 02/17/2024 INFLUENZA VACCINE (Season Ended) 2024 ZOSTER VACCINE (1 of 2) 2032 HIB VACCINE Aged Out No longer eligi ble based on patient's age to complete this topic HPV VACCINE Aged Out No longer eligi ble based on patient's age to complete this topic MENINGOCOCCAL (Group B) VACC INE SHARED DECISION-MAKING Aged Out No longer eligibl e based on patient's age to complete this topic MENINGOCOCCAL GROUPS A/C/Y/W VACCINE Aged Out No longer eligible b ased on patient's age to complete this topic PNEUMOCOCCAL VACCINE Aged Out No long er eligible based on patient's age to complete this topic Insurance Advance Directives * Full Code (Latest Code Status on File) Date Activated Date Inactivated Comments 12/22/2022 2:29 AM 12/24/2022 3:21 PM * Full Code Date Activated Date Inactivated Comments 12/22/2022 2:29 AM 12/22/2022 2:29 AM * Full Code Date Activated Date Inactivated Comments 12/20/2022 12:01 AM 12/22/2022 1:50 AM * Full Code Date Activated Date Inactivated Comments 12/20/2022 12:01 AM 12/20/2022 12:01 AM Care Teams Manager E Commerce Relationship Specialty Start Date End Date Francy Sneed MD [address] [place] [address] PCP - General Family Medicine 12/17/22
[2024-06-07 13:59] LABS: Folic Acid 6.2 ng/mL (2.76->20); Vitamin B12 > 1000.0 pg/mL (239-931)
[2024-06-07 15:11] LABS: Vitamin D 25 Hydroxy 42.7 ng/mL
== END 2024-06-07 11:42 | disposition home or self-care (01) ==
LOC: ANHLAB 11:43
PROVIDERS: PCP Family Medicine; Visit Provider Family Medicine
DX: R73.9 Hyperglycemia, unspecified (principal); G20.A1 Parkinson's disease without dyskinesia, without mention of fluctuations; D64.9 Anemia, unspecified; E55.9 Vitamin D deficiency, unspecified; F32.A Depression, unspecified; E78.5 Hyperlipidemia, unspecified; M06.9 Rheumatoid arthritis, unspecified
CPT/HCPCS: 36415; 80053; 80061; 82306; 82607; 82728; 82746; 83036; 83540; 83550; 84443; 85025

== ENCOUNTER 2024-11-12 07:22 | Outpatient (CLI) | payer MEDICARE, SELFPAY ==
--- OUTSIDE RECORDS SUMMARY | 2024-11-12 07:26 | XMS_ITS | Clinical Summary ---
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 Gender Identity Not on file Sexual Orientation Not on file Plan of Treatment Health Maintenance Due Date Last Done Comments Hepatitis C Virus (HCV) Screening 1982 TdaP Immunization 1982 Hepatitis B Immunization (1 of 3 - 19+ 3-dose series) 2001 Pap Smear 07/22/2003 Human Papillomavirus (HPV) Immunization (1 - 3-dose SCDM series) 2009 Cervical Cancer Screening (CCS) 2012 HPV/Cotest 2012 SARS-COV-2 Immunization (2023- season) 2023 Influenza Immunization (#1) 2024 Respiratory Syncytial Virus (RSV) Immunization (Adult) (1 - 1-dose 75+ series) 2057 Meningococcal Immunization (ACWY) Aged Out No longer eligible based on patient's age to complete this topic Pneumococcal Immunization Combined Aged Out No longer eligible based on patient's age to complete this topic Rotavirus Immunization Aged Out No lo nger eligible based on patient's age to complete this topic
--- OUTSIDE RECORDS SUMMARY | 2024-11-12 07:26 | XMS_ITS | Encounter Summary ---
Author Organization [facility] Address [address] [place] [address] Care Team Providers Care Ui Ux Engineer Name Role Phone Anil Encarnacion MD Primary Care Provider [phone] Encounter Details Date Type Department Care Team (Late st Contact Info) Description 11/19/2016 Abstract [facility] CONVERSION [address] [place] [address] , Generic MD Parvin Social History Tobacco Use Types Packs/Day Years Used Date Smoking Tobacco: Never Assessed Comments Unknown Sex and Gender Information Value Date Recorded Sex Assigned at Female 10/21/2024 7:04 AM CDT Legal Sex Female 12:54 PM CDT Gender Identity Not on file Sexual Orientation Not on file documented as of this encounter Plan of Treatment Not on file documented as of this encounter Visit Diagnoses Not on filedocumented in this encounter Care Teams Ui Ux Engineer Relationship Specialty [place] [address] [place], [place] [id number] PCP - General RHEUMATOLOGY 10/21/24 documented as of this encounter
--- OUTSIDE RECORDS SUMMARY | 2024-11-12 07:26 | XMS_ITS | Clinical Summary ---
Author Organization [facility] Address [address] [place] [address] Care Team Providers Care Film Examiner Name Role Phone Francy Sneed MD Primary Care Provider Source Comments [facility],non-owned Affiliates and Associated Physician Practices is amultiple site organization consisting of ambulatory clinics and hospital sitesin [place], [place], [place] and [place]. This disclosure is being madepursuant to the Care Everywhere program and may not contain all information available regarding this patient. Last updated 17.[facility] Allergies Active Allergy Reactions Criticality Noted Date [...] medical care, and heating? Patient declined 12/22/2022 [facility] [place] of Occupat ional Health - Occupational Stress [...] place to sleep or slept in a senior living (including now)? No 12/22/2022 Education Answer Date Recorded What is the highest level of school you have completed or the highest degree you have received? 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 Gender Identity Not on file Sexual Orientation Not on file Last Filed Vital Signs Vital Sign Reading Time Taken Comments Blood Pressure 102/76 12/24/2022 7:16 AM METAL RIVET MACHINE OPERATOR Pulse 94 12/24/2022 7:16 AM METAL RIVET MACHINE OPERATOR Temperature 36.7 C (98.1 F) 12/24/2022 7:16 AM METAL RIVET MACHINE OPERATOR Respiratory Rate 16 12/24/2022 7:16 AM METAL RIVET MACHINE OPERATOR Oxygen Saturation 96% 12/24/2022 7:16 AM METAL RIVET MACHINE OPERATOR Inhaled Oxygen Concentration - - Weight 52.3 kg (115 lb 4.8 oz) 12/22/2022 1:55 A M METAL RIVET MACHINE OPERATOR Height 162.6 cm (5' 4) 12/22/2022 1:55 AM METAL RIVET MACHINE OPERATOR Body Mass Index 19.79 12/22/2022 1:55 AM METAL RIVET MACHINE OPERATOR Plan of Treatment Health Maintenance Due Date Last Done Comments LIPID TESTING 1982 MAMMOGRAM 1982 HIV SCREENING 1997 HEPATITIS C SCREENING 07/16/2000 DTAP/TDAP/TD VACCINES (1 - Tdap) 2001 HEPATITIS B VACCINE (1 of 3 - 19+ 3-dose series) 2001 PAP SMEAR 07/22/2003 HPV VACCINE (1 - 3-dose SCDM series) 2009 DEPRESSION SCREENING 02/17/2024 COVID-19 VACCINE (2 - 2024-2 6 season) 2024 01/16/2021 INFLUENZA VACCINE (#1) 2024 ZOSTER VACCINE (1 of 2) 2032 [...] 12:01 AM 12/20/2022 12:01 AM Care Teams Film Examiner Relationship Specialty Start Date End Date Francy Sneed MD [address] [place] [address] PCP - General Family Medicine 12/17/22
--- OUTSIDE RECORDS SUMMARY | 2024-11-12 07:26 | XMS_ITS | Clinical Summary ---
Author Organization [facility] Address [address] [place] [address] Care Team Providers Care Firesetter Name Role Phone Francy Sneed MD Primary Care Provider Allergies Active Allergy Reactions Criticality Noted Date [...] on file Legal Sex Female 3:19 AM APPLICATIONS PROGRAMMER ANALYST Gender Identity Not on file Sexual Orientation Not on file Obstetrics History Last Filed Vital Signs Vital Sign Reading Time Taken Comments Blood Pressure 101/75 03/15/2021 12:40 PM APPLICATIONS PROGRAMMER ANALYST Pulse 76 03/15/2021 12:40 PM APPLICATIONS PROGRAMMER ANALYST Temperature 36.7 C (98.1 F) 06/25/2015 9:46 PM CDT Respiratory Rate - - Oxygen Saturation 98% 03/15/2021 12:40 PM APPLICATIONS PROGRAMMER ANALYST Inhaled Oxygen Concentration - - Weight 52.8 kg (116 lb 6.4 oz) 03/15/2021 12:40 PM APPLICATIONS PROGRAMMER ANALYST Height 165.1 cm (5' 5) 03/15/2021 12:40 PM APPLICATIONS PROGRAMMER ANALYST Body Mass Index 19.37 03/15/2021 12:40 PM APPLICATIONS PROGRAMMER ANALYST Plan of Treatment Health Maintenance Due Date Last Done Comments Breast Cancer Screening-Mammogram 1982 Cervical Cancer Screening 1982 Depression Screening 1982 Hepatitis C Screening 1982 DTaP/Tdap/Td Vaccine (1 - Tdap) 1993 Varicella Vaccines (1 of 2 - 13+ 2-dose series) 07/22/1995 Hepatitis B Screening 2000 Regular Well Visit/Exam 18-64 2000 HPV Vaccines (1 - 3-dose SCD M series) 2009 Covid-19 Vaccine (2 - 2024-2 6 season) 2024 01/16/2021 Influenza Vaccine (#1) 2024 Pneumococcal vaccine <65 Aged Out No longer eligible based on patient's age to complete this topic Insurance [facility] Address: [address] [address] [place] [address] [employer] PLAN [employer]PA [facility] PLAN [facility] MEDICARE ADV[facility]AGE [facility] Address: [address] [address] [place] [address] Care Teams Firesetter Relationship Specialty Start Date End Date Francy Sneed MD [facility] [place] [address] PCP - General Family Practice 06/28/24
[2024-11-12 08:41] LABS: Alanine Aminotransferase 34 U/L (6-35); Albumin Level 4.6 g/dL (3.5-5.1); Alkaline Phosphatase 96 U/L (38-126); Anion Gap 7 mmol/L (4-12); Aspartate Amino Transferase 43 U/L (14-36); Bilirubin,Total 0.5 mg/dL (0.2-1.3); Blood Urea Nitrogen 6 mg/dL (7-17); Calcium 9.1 mg/dL (8.4-10.2); Carbon Dioxide 27 mmol/L (22-30); Chloride 105 mmol/L (98-107); Estimated Glomerular Filt Rate > 60; Glucose 121 mg/dL (65-110); Potassium 3.9 mmol/L (3.4-5.0); Sodium 139 mmol/L (137-145); Total Protein 7.8 g/dL (6.3-8.2)
== END 2024-11-12 07:23 | disposition home or self-care (01) ==
PROVIDERS: PCP Family Medicine; Visit Provider Family Medicine
DX: R79.89 Other specified abnormal findings of blood chemistry (principal)
CPT/HCPCS: 36415; 80053